=== PATIENT | female | born 1940 | race Two or more races ===

== ENCOUNTER → 2016-07-29 | Outpatient (CLI) | payer MEDICARE, MEDICAID ==
[~2016-07-29] MED LIST: ABAT125S SC; ALBU2SYP PO; ALBUAER3 IN; CERT200K SC; CHOL200021 PO; ESCI10TA53 PO; FLU05NSL; FLUT250M2 INH; FOLI1TAB51 PO; GABA-339 PO; HYDR-3546 PO; IBUP600T27 PO; LEUC5TAB PO; OMEP20CA5 PO; PAR20T PO; PRE1T PO; SUCR1TAB PO; ZOLP10TA PO
[2016-07-29 12:07] LABS: Basophils # (auto) 0 uL; Basophils % (auto) 0.3 % (0.0-2.0); Eosinophils # (auto) 0.2 uL; Eosinophils % (auto) 1.9 % (0.0-7.0); Hematocrit 45.5 % (36.0-46.0); Hemoglobin 14.2 g/dL (12.2-16.2); Lymphocytes # (auto) 1.9 uL; Mean Corpuscular Hemoglobin 29.3 pg (28.0-32.0); Mean Corpuscular Hgb Conc. 31.3 g/dL (32.0-36.0); Mean Corpuscular Volume 93.7 fL (80.0-100.0); Mean Platelet Volume 7.7 fL (7.4-10.4); Monocytes # (auto) 0.7 uL; Monocytes % (auto) 7.8 % (0.0-12.0); Neutrophils # (auto) 6.2 uL; Platelet Count (auto) 310 10^3/uL (140-450); Red Cell Distribution Width 14.6 % (11.6-16.0); White Blood Cell 8.9 10^3/uL (4.4-10.8)
[2016-07-29 12:30] LABS: Albumin 3.2 g/dL (3.4-5.0); Bilirubin, Total 0.4 mg/dL (0.2-1.0); Calcium 9.1 mg/dL (8.5-10.1); Potassium 4.3 mmol/L (3.5-5.1); Total Protein 6.9 g/dL (6.4-8.2)
== END | disposition home or self-care (01) ==
LOC: LAB 10:25
DX: Z79.899 Other long term (current) drug therapy (principal); I10 Essential (primary) hypertension; D64.9 Anemia, unspecified; E03.9 Hypothyroidism, unspecified; M06.9 Rheumatoid arthritis, unspecified; E21.5 Disorder of parathyroid gland, unspecified; M25.50 Pain in unspecified joint
CPT/HCPCS: 36415; 80053; 84443; 85025; 85652; 86141

== ENCOUNTER → 2016-08-07 | Outpatient (CLI) | payer MEDICARE, MEDICAID | END | disposition home or self-care (01) | LOC: XY 08:16 | DX: M25.551 Pain in right hip (principal); Z96.641 Presence of right artificial hip joint | CPT/HCPCS: 78306; A9503 ==

== ENCOUNTER → 2016-09-09 | Outpatient (CLI) | payer MEDICARE, MEDICAID ==
[~2016-09-09] MED LIST changes: +ALEN70TA55 PO; +DIC10C OR; +HYDR-531 PO; +TERI600S SUBCUT; +[UNRECOGNIZED DRUG - CODE] SC
[2016-09-09 17:03] LABS: INR 0.97 (0.9-1.15); Partial Thromboplastin Time 23.1 sec (22.64-33.71)
[2016-09-09 17:10] LABS: Basophils # (auto) 0 uL; Basophils % (auto) 0.3 % (0.0-2.0); Eosinophils # (auto) 0 uL; Eosinophils % (auto) 0.4 % (0.0-7.0); Hematocrit 45.3 % (36.0-46.0); Hemoglobin 15.6 g/dL (12.2-16.2); Mean Corpuscular Hemoglobin 31.6 pg (28.0-32.0); Mean Corpuscular Hgb Conc. 34.5 g/dL (32.0-36.0); Mean Corpuscular Volume 91.8 fL (80.0-100.0); Mean Platelet Volume 7.3 fL (7.4-10.4); Monocytes # (auto) 0.6 uL; Monocytes % (auto) 5.9 % (0.0-12.0); Neutrophils % (auto) 72.4 % (37.0-80.0); Platelet Count (auto) 283 10^3/uL (140-450); White Blood Cell 9.6 10^3/uL (4.4-10.8)
[2016-09-09 17:16] LABS: Albumin 3.4 g/dL (3.4-5.0); BUN/Creatinine Ratio 35.4; Calcium 8.8 mg/dL (8.5-10.1); Potassium 4.5 mmol/L (3.5-5.1)
[2016-09-09 17:19] LABS: Bilirubin, Total 0.3 mg/dL (0.2-1.0); Total Protein 7.5 g/dL (6.4-8.2)
== END | disposition home or self-care (01) ==
LOC: LAB 14:58
PROVIDERS: ATTEND Podiatrist Foot & Ankle Surgery
DX: Z01.818 Encounter for other preprocedural examination (principal); R79.1 Abnormal coagulation profile
CPT/HCPCS: 36415; 80053; 85025; 85610; 85730

== ENCOUNTER 2016-09-10 09:52 | Day surgery (SDC) | payer MEDICARE, MEDICAID ==
[~2016-09-10] VITALS: Ht 157.5 cm; Wt 48.1 kg
[~2016-09-10 09:52] MED LIST changes: -ALBU2SYP PO; -CERT200K SC; -ESCI10TA53 PO; -HYDR-3546 PO; -IBUP600T27 PO; -PAR20T PO; -SUCR1TAB PO; -ZOLP10TA PO
[2016-09-10] MEDS ORDERED: ceFAZolin 1GM/50ML D5W 50 ML IV ONE (10:12)
[2016-09-10] MEDS ORDERED: BUPIVACAINE 0.75% INJ 10ML MPV SDV IJ ONE (12:28)
[2016-09-10] MEDS ORDERED: NEOMYCIN-BACITRACIN-POLYM 15GM TOP OINT TOP ONE (12:28)
[2016-09-10] MEDS ORDERED: ceFAZolin 1GM VL ONE (12:28)
[2016-09-10] MEDS ORDERED: MIDAZOLAM HCL 1MG/1ML-2 ML VIAL ONE (12:31)
[2016-09-10] MEDS ORDERED: ONDANSETRON HCL 4 MG/2 ML VIAL ONE (12:31)
[2016-09-10] MEDS ORDERED: PROPOFOL 10 MG/ML 20 ML IV ONE (12:31)
[2016-09-10] MEDS ORDERED: fentaNYL CITRATE 100 MCG/2 ML VL ONE (12:31)
[2016-09-10] MEDS ORDERED: HYDROCORTISONE SOD SUCC 100 MG/2ML INJ VIAL ONE (12:57)
[2016-09-10] MEDS ORDERED: BUPIVACAINE W/ EPINEPH 0.25% INJ 50ML MDV ONE (13:01)
[2016-09-10] MEDS ORDERED: KETOROLAC TROMETH 30 MG/ML 1ML VIAL IV ONE (13:15)
[2016-09-10] MEDS ORDERED: PROMETHAZINE HCL 25 MG/ML 1ML IM ONE (13:15)
[2016-09-10] MEDS ORDERED: HYDROmorphone HCL 2 MG/ML VL IV PRN (13:15)
[2016-09-10 15:03] VITALS: BP 134/69
== END 2016-09-10 15:15 | disposition home or self-care (01) ==
LOC: SUR 09:52
PROVIDERS: ATTEND Podiatrist Foot & Ankle Surgery
DX: M24.574 Contracture, right foot (principal); J44.9 Chronic obstructive pulmonary disease, unspecified; F41.9 Anxiety disorder, unspecified; F32.9 Major depressive disorder, single episode, unspecified
CPT/HCPCS: 27685; J0690; J1170; J1720; J1885; J2250; J2405; J2704; J3010; J3490; Q4131

== ENCOUNTER 2016-11-17 07:42 | Inpatient (IN) | payer MEDICARE, MEDICAID ==
[~2016-11-17] VITALS: Ht 152.4 cm; Wt 49.4 kg
[~2016-11-17 07:42] MED LIST changes: -ABAT125S SC; +ABAT1INJ SC; -ALBUAER3 IN; -CHOL200021 PO; -DIC10C OR; +DICY20TA66 PO; -FLU05NSL; +FLUO-126 PO; +FLUT1SPR5; -FLUT250M2 INH; -LEUC5TAB PO; +LORA2TAB89 PO; +SUCR1TAB38 OR; -[UNRECOGNIZED DRUG - CODE] SC
[2016-11-17 09:07] LABS: Basophils # (auto) 0 uL; Basophils % (auto) 0.5 % (0.0-2.0); Eosinophils # (auto) 0 uL; Eosinophils % (auto) 0.7 % (0.0-7.0); Hematocrit 45.3 % (36.0-46.0); Hemoglobin 15.3 g/dL (12.2-16.2); Lymphocytes # (auto) 2.4 uL; Lymphocytes % (auto) 35.6 % (10.0-50.0); Mean Corpuscular Hemoglobin 31.9 pg (28.0-32.0); Mean Corpuscular Hgb Conc. 33.8 g/dL (32.0-36.0); Mean Corpuscular Volume 94.3 fL (80.0-100.0); Mean Platelet Volume 6.9 fL (7.4-10.4); Monocytes # (auto) 0.6 uL; Monocytes % (auto) 8.9 % (0.0-12.0); Neutrophils # (auto) 3.7 uL; Neutrophils % (auto) 54.3 % (37.0-80.0); Platelet Count (auto) 266 10^3/uL (140-450); Red Cell Distribution Width 15.9 % (11.6-16.0); White Blood Cell 6.9 10^3/uL (4.4-10.8)
[2016-11-17 09:13] LABS: Albumin 3.7 g/dL (3.4-5.0); Alkaline Phosphatase 64 U/L (45-117); Anion Gap 10 (5-15); Aspartate Aminotransferase 19 U/L (15-37); Bilirubin, Total 0.7 mg/dL (0.2-1.0); Blood Urea Nitrogen 6 mg/dL (7-18); Calcium 9.1 mg/dL (8.5-10.1); Carbon Dioxide 25 mmol/L (21-32); Chloride 104 mmol/L (98-107); GFR African American 201 mL/min; GFR Non-African American 166 mL/min; Glucose 82 mg/dL (74-106); Magnesium 2.4 mg/dL (1.6-2.6); Potassium 3.9 mmol/L (3.5-5.1); Sodium 139 mmol/L (136-145); Total Protein 7.1 g/dL (6.4-8.2)
[2016-11-17] MEDS ORDERED: SODIUM CHLORIDE 0.9% 1,000 ML IV ONE (10:00)
[2016-11-17] MEDS ORDERED: MORPHINE SULF INJ 2 MG/ML SYRINGE 1ML IV ONE (10:00)
[2016-11-17] MEDS ORDERED: ONDANSETRON HCL 4 MG/2 ML VIAL IV ONE ×2 (10:00→12:15)
[2016-11-17] MEDS ORDERED: PANTOPRAZOLE SODIUM 40 MG/10 ML VIAL IV ONE (11:00)
[2016-11-17 11:06] LABS: Urine Bilirubin Negative (Negative); Urine Blood Negative /uL (Negative); Urine Color Yellow (Yellow); Urine Glucose Normal (Normal); Urine Nitrite Negative (Negative); Urine RBC 1 /hpf (0 - 4); Urine Squamous Epithelial Cell FEW /hpf (<5); Urine Urobilinogen Normal (Negative); Urine pH 8.5 (5.0-8.0)
[2016-11-17 11:07] LABS: Urine Ketone 2+ (Negative)
[2016-11-17] MEDS ORDERED: HYDROmorphone HCL 2 MG/ML VL IV ONE (12:15)
[2016-11-17] MEDS: SODIUM CHLORIDE 0.9% 1,000 ML IV SCH (15:58)
[2016-11-17] MEDS ORDERED: ALENDRONATE SODIUM 10 MG TAB PO SCH (16:00)
[2016-11-17] MEDS ORDERED: ACETAMINOPHEN 325 MG TAB PO PRN (16:00)
[2016-11-17] MEDS ORDERED: DOCUSATE SOD 100 MG CAP PO PRN (16:00)
[2016-11-17] MEDS ORDERED: cefTRIAXone 1GM/50ML D5W 50 ML IV ONE (16:00)
[2016-11-17] MEDS: SUCRALFATE 1 GM/10 ML ORAL SUSP PO SCH ×2 (16:49→22:40)
[2016-11-17] MEDS: MORPHINE SULF INJ 2 MG/ML SYRINGE 1ML IV PRN (18:14)
[2016-11-17] MEDS: ONDANSETRON HCL 4 MG/2 ML VIAL IV PRN (18:14)
[2016-11-17] MEDS: metroNIDAZOLE 500MG/100ML 100 ML IV SCH (18:20)
[2016-11-17] MEDS: DICYCLOMINE HCL 10 MG CAP PO SCH ×2 (18:20→22:40)
[2016-11-17 20:00] VITALS: BP 103/47
[2016-11-17 22:00] VITALS: BP 103/47
[2016-11-17] MEDS ORDERED: FAMOTIDINE (10MG/ML) 2ML VL IV SCH (22:00)
[2016-11-17] MEDS: FLUTICASONE PROP NASAL SPR 0.05 % (50MCG) 16GM EACHNOSTRI SCH (22:00)
[2016-11-17] MEDS: PANTOPRAZOLE SODIUM 40 MG/10 ML VIAL IV SCH (22:39)
[2016-11-17] MEDS: GABAPENTIN 300 MG CAP PO SCH (22:40)
[2016-11-17] MEDS: HYDROcodone-ACET 10/325MG TAB PO PRN (22:41)
[2016-11-18] VITALS (7 sets, daily range): BP systolic 110–127; BP diastolic 44–61
[2016-11-18] MEDS: metroNIDAZOLE 500MG/100ML 100 ML IV SCH ×3 (01:42→11:43)
[2016-11-18] MEDS: SODIUM CHLORIDE 0.9% 1,000 ML IV SCH ×3 (01:43→16:43)
[2016-11-18] MEDS: TEMAZEPAM 15 MG CAP PO PRN ×2 (02:15→23:23)
[2016-11-18] MEDS: DICYCLOMINE HCL 10 MG CAP PO SCH ×4 (06:38→21:34)
[2016-11-18] MEDS: SUCRALFATE 1 GM/10 ML ORAL SUSP PO SCH ×4 (06:38→21:33)
[2016-11-18 06:55] LABS: Basophils # (auto) 0 uL; Basophils % (auto) 0.7 % (0.0-2.0); Eosinophils # (auto) 0.1 uL; Eosinophils % (auto) 1.8 % (0.0-7.0); Hematocrit 37.4 % (36.0-46.0); Hemoglobin 12.7 g/dL (12.2-16.2); Lymphocytes # (auto) 1.8 uL; Lymphocytes % (auto) 35.5 % (10.0-50.0); Mean Corpuscular Hemoglobin 32.2 pg (28.0-32.0); Mean Corpuscular Volume 94.6 fL (80.0-100.0); Mean Platelet Volume 6.8 fL (7.4-10.4); Monocytes # (auto) 0.5 uL; Monocytes % (auto) 10.3 % (0.0-12.0); Neutrophils # (auto) 2.6 uL; Neutrophils % (auto) 51.7 % (37.0-80.0); Platelet Count (auto) 222 10^3/uL (140-450); Red Cell Distribution Width 15.1 % (11.6-16.0); White Blood Cell 5.1 10^3/uL (4.4-10.8)
[2016-11-18 07:03] LABS: Albumin 2.7 g/dL (3.4-5.0); BUN/Creatinine Ratio 17.9; Bilirubin, Total 0.5 mg/dL (0.2-1.0); Calcium 7.7 mg/dL (8.5-10.1); Potassium 3.7 mmol/L (3.5-5.1); Total Protein 5.5 g/dL (6.4-8.2)
[2016-11-18] MEDS ORDERED: cefTRIAXone 1GM/50ML D5W 50 ML IV SCH (09:00)
[2016-11-18] MEDS: FLUTICASONE PROP NASAL SPR 0.05 % (50MCG) 16GM EACHNOSTRI SCH ×2 (09:56→22:00)
[2016-11-18] MEDS: MULTIPLE VITAMIN TAB PO SCH (09:56)
[2016-11-18] MEDS: PANTOPRAZOLE SODIUM 40 MG/10 ML VIAL IV SCH ×2 (09:56→21:33)
[2016-11-18] MEDS: MORPHINE SULF INJ 2 MG/ML SYRINGE 1ML IV PRN ×2 (09:56→17:32)
[2016-11-18] MEDS: GABAPENTIN 300 MG CAP PO SCH ×2 (09:57→21:34)
[2016-11-18] MEDS: predniSONE 1 MG TAB PO SCH (09:57)
[2016-11-18] MEDS: FOLIC ACID 1 MG TAB PO SCH (09:57)
[2016-11-18] MEDS: FLUoxetine HCL 10 MG CAP PO SCH (09:57)
[2016-11-18] MEDS: ONDANSETRON HCL 4 MG/2 ML VIAL IV PRN ×2 (12:28→17:32)
[2016-11-18] MEDS: HYDROcodone-ACET 10/325MG TAB PO PRN ×2 (12:28→21:40)
[2016-11-19] MEDS: SODIUM CHLORIDE 0.9% 1,000 ML IV SCH ×3 (03:06→17:35)
[2016-11-19] MEDS: HYDROcodone-ACET 10/325MG TAB PO PRN (05:12)
[2016-11-19] MEDS: SUCRALFATE 1 GM/10 ML ORAL SUSP PO SCH ×4 (05:12→22:18)
[2016-11-19] MEDS: DICYCLOMINE HCL 10 MG CAP PO SCH ×2 (05:12→11:41)
[2016-11-19 05:30] VITALS: BP 129/60
[2016-11-19 09:00] VITALS: BP 133/72
[2016-11-19] MEDS: FOLIC ACID 1 MG TAB PO SCH (09:47)
[2016-11-19] MEDS: FLUoxetine HCL 10 MG CAP PO SCH (09:47)
[2016-11-19] MEDS: MULTIPLE VITAMIN TAB PO SCH (09:47)
[2016-11-19] MEDS: PANTOPRAZOLE SODIUM 40 MG/10 ML VIAL IV SCH (09:47)
[2016-11-19] MEDS: predniSONE 1 MG TAB PO SCH (09:47)
[2016-11-19] MEDS: MORPHINE SULF INJ 2 MG/ML SYRINGE 1ML IV PRN ×4 (09:47→22:18)
[2016-11-19] MEDS: GABAPENTIN 300 MG CAP PO SCH ×2 (09:47→22:18)
[2016-11-19] MEDS: ONDANSETRON HCL 4 MG/2 ML VIAL IV PRN ×4 (09:56→22:18)
[2016-11-19] MEDS: FLUTICASONE PROP NASAL SPR 0.05 % (50MCG) 16GM EACHNOSTRI SCH ×2 (10:00→22:46)
[2016-11-19 13:00] VITALS: BP 111/53
[2016-11-19 16:34] VITALS: BP 123/60
[2016-11-19 20:00] VITALS: BP 109/59
[2016-11-19 22:00] VITALS: BP 109/59
[2016-11-19] MEDS: PANTOPRAZOLE 40 MG TAB PO SCH (22:19)
[2016-11-20] MEDS: SODIUM CHLORIDE 0.9% 1,000 ML IV SCH ×3 (02:49→19:48)
[2016-11-20] MEDS: MORPHINE SULF INJ 2 MG/ML SYRINGE 1ML IV PRN ×5 (03:20→21:24)
[2016-11-20] MEDS: ONDANSETRON HCL 4 MG/2 ML VIAL IV PRN ×5 (03:20→21:24)
[2016-11-20 05:30] VITALS: BP 115/57
[2016-11-20] MEDS: SUCRALFATE 1 GM/10 ML ORAL SUSP PO SCH ×4 (06:33→21:57)
[2016-11-20 08:00] VITALS: BP 119/74
[2016-11-20 09:00] VITALS: BP_SYST 112; BP_SYST 119; BP_DIAS 59; BP_DIAS 74
[2016-11-20] MEDS: FLUTICASONE PROP NASAL SPR 0.05 % (50MCG) 16GM EACHNOSTRI SCH ×2 (09:23→21:58)
[2016-11-20] MEDS: PANTOPRAZOLE 40 MG TAB PO SCH ×2 (09:24→21:31)
[2016-11-20] MEDS: predniSONE 1 MG TAB PO SCH (09:24)
[2016-11-20] MEDS: GABAPENTIN 300 MG CAP PO SCH (09:24)
[2016-11-20] MEDS: MULTIPLE VITAMIN TAB PO SCH (09:24)
[2016-11-20] MEDS: FLUoxetine HCL 10 MG CAP PO SCH (09:24)
[2016-11-20] MEDS: FOLIC ACID 1 MG TAB PO SCH (09:24)
[2016-11-20] MEDS: BOOST PLUS 8 ounce PO SCH ×2 (10:00→22:00)
[2016-11-20 13:00] VITALS: BP 112/64
[2016-11-20] MEDS: HYOSCYAMINE SULF 0.125 MG TAB PO PRN (16:11)
[2016-11-20 17:00] VITALS: BP 124/67
[2016-11-20] MEDS: PREGABALIN 25 MG CAP PO SCH (21:31)
[2016-11-20 22:00] VITALS: BP 132/82
[2016-11-21] MEDS: SODIUM CHLORIDE 0.9% 1,000 ML IV SCH ×3 (03:18→20:07)
[2016-11-21 05:00] VITALS: BP 140/78
[2016-11-21] MEDS: MORPHINE SULF INJ 2 MG/ML SYRINGE 1ML IV PRN ×4 (05:57→20:44)
[2016-11-21] MEDS: ONDANSETRON HCL 4 MG/2 ML VIAL IV PRN ×4 (05:57→20:44)
[2016-11-21] MEDS: SUCRALFATE 1 GM/10 ML ORAL SUSP PO SCH ×4 (06:25→21:41)
[2016-11-21 08:00] VITALS: BP 154/78
[2016-11-21] MEDS: HYDROcodone-ACET 10/325MG TAB PO PRN ×2 (08:38)
[2016-11-21 09:00] VITALS: BP 154/78
[2016-11-21] MEDS: PANTOPRAZOLE 40 MG TAB PO SCH ×2 (11:24→21:41)
[2016-11-21] MEDS: FLUoxetine HCL 10 MG CAP PO SCH (11:24)
[2016-11-21] MEDS: predniSONE 1 MG TAB PO SCH (11:24)
[2016-11-21] MEDS: MULTIPLE VITAMIN TAB PO SCH (11:24)
[2016-11-21] MEDS: FOLIC ACID 1 MG TAB PO SCH (11:25)
[2016-11-21] MEDS: FLUTICASONE PROP NASAL SPR 0.05 % (50MCG) 16GM EACHNOSTRI SCH ×2 (11:26→21:41)
[2016-11-21] MEDS: BOOST PLUS 8 ounce PO SCH ×2 (11:26→21:41)
[2016-11-21 13:00] VITALS: BP 142/72
[2016-11-21 17:00] VITALS: BP 117/64
[2016-11-21] MEDS: TEMAZEPAM 15 MG CAP PO PRN (21:41)
[2016-11-21] MEDS: PREGABALIN 25 MG CAP PO SCH (21:41)
[2016-11-21] MEDS: metroNIDAZOLE 500 MG TAB PO SCH (21:41)
[2016-11-21 22:00] VITALS: BP 142/78
[2016-11-22] VITALS (7 sets, daily range): BP systolic 122–150; BP diastolic 68–83
[2016-11-22] MEDS: ONDANSETRON HCL 4 MG/2 ML VIAL IV PRN ×5 (04:02→22:45)
[2016-11-22] MEDS: MORPHINE SULF INJ 2 MG/ML SYRINGE 1ML IV PRN ×5 (04:02→22:45)
[2016-11-22] MEDS: SODIUM CHLORIDE 0.9% 1,000 ML IV SCH ×3 (04:02→21:03)
[2016-11-22] MEDS: metroNIDAZOLE 500 MG TAB PO SCH ×3 (06:25→21:40)
[2016-11-22] MEDS: SUCRALFATE 1 GM/10 ML ORAL SUSP PO SCH ×4 (06:25→21:40)
[2016-11-22 06:44] LABS: Basophils # (auto) 0 uL; Basophils % (auto) 0.6 % (0.0-2.0); Eosinophils # (auto) 0 uL; Eosinophils % (auto) 0.9 % (0.0-7.0); Hematocrit 37.3 % (36.0-46.0); Hemoglobin 12.7 g/dL (12.2-16.2); Lymphocytes # (auto) 1.6 uL; Lymphocytes % (auto) 34.7 % (10.0-50.0); Mean Corpuscular Hemoglobin 32.2 pg (28.0-32.0); Mean Corpuscular Volume 94.8 fL (80.0-100.0); Mean Platelet Volume 7.2 fL (7.4-10.4); Monocytes # (auto) 0.6 uL; Neutrophils # (auto) 2.4 uL; Neutrophils % (auto) 51.8 % (37.0-80.0); Platelet Count (auto) 219 10^3/uL (140-450); Red Cell Distribution Width 15.4 % (11.6-16.0); White Blood Cell 4.6 10^3/uL (4.4-10.8)
[2016-11-22] MEDS: FLUTICASONE PROP NASAL SPR 0.05 % (50MCG) 16GM EACHNOSTRI SCH ×2 (10:00→21:40)
[2016-11-22] MEDS: FOLIC ACID 1 MG TAB PO SCH (10:44)
[2016-11-22] MEDS: FLUoxetine HCL 10 MG CAP PO SCH (10:44)
[2016-11-22] MEDS: PANTOPRAZOLE 40 MG TAB PO SCH ×2 (10:44→21:40)
[2016-11-22] MEDS: MULTIPLE VITAMIN TAB PO SCH (10:44)
[2016-11-22] MEDS: predniSONE 1 MG TAB PO SCH (10:44)
[2016-11-22] MEDS: BOOST PLUS 8 ounce PO SCH ×2 (10:49→21:40)
[2016-11-22] MEDS: HYDROcodone-ACET 10/325MG TAB PO PRN (12:41)
[2016-11-22] MEDS: PREGABALIN 25 MG CAP PO SCH (21:40)
[2016-11-23] VITALS (7 sets, daily range): BP systolic 116–147; BP diastolic 68–80
[2016-11-23] MEDS: MORPHINE SULF INJ 2 MG/ML SYRINGE 1ML IV PRN ×2 (05:15→09:50)
[2016-11-23] MEDS: ONDANSETRON HCL 4 MG/2 ML VIAL IV PRN ×5 (05:15→23:05)
[2016-11-23] MEDS: metroNIDAZOLE 500 MG TAB PO SCH ×3 (05:15→21:27)
[2016-11-23] MEDS: SODIUM CHLORIDE 0.9% 1,000 ML IV SCH ×2 (05:46→14:06)
[2016-11-23] MEDS: SUCRALFATE 1 GM/10 ML ORAL SUSP PO SCH ×4 (06:21→21:26)
[2016-11-23] MEDS: FOLIC ACID 1 MG TAB PO SCH (09:51)
[2016-11-23] MEDS: FLUoxetine HCL 10 MG CAP PO SCH (09:51)
[2016-11-23] MEDS: PANTOPRAZOLE 40 MG TAB PO SCH ×2 (09:51→21:28)
[2016-11-23] MEDS: predniSONE 1 MG TAB PO SCH (09:51)
[2016-11-23] MEDS: MULTIPLE VITAMIN TAB PO SCH (09:51)
[2016-11-23] MEDS: FLUTICASONE PROP NASAL SPR 0.05 % (50MCG) 16GM EACHNOSTRI SCH ×2 (09:52→21:26)
[2016-11-23] MEDS: BOOST PLUS 8 ounce PO SCH ×2 (09:52→21:27)
[2016-11-23] MEDS: PHENAZOPYRIDINE HCL 100 MG TAB PO SCH ×2 (11:49→17:51)
[2016-11-23 11:50] LABS: Urine Bilirubin Negative (Negative); Urine Blood Negative /uL (Negative); Urine Color Yellow (Yellow); Urine Glucose Normal (Normal); Urine Ketone Negative (Negative); Urine Mucus FEW (None Seen); Urine Nitrite Negative (Negative); Urine RBC <1 /hpf (0 - 4); Urine Squamous Epithelial Cell FEW /hpf (<5); Urine Urobilinogen Normal (Negative)
[2016-11-23] MEDS: MORPHINE SULFATE 4 MG/ML SYRG IV PRN ×3 (14:11→23:05)
[2016-11-23] MEDS: PREGABALIN 25 MG CAP PO SCH (21:27)
[2016-11-23] MEDS: NITROFURANTOIN (MONO) 100 mg CAP PO SCH (21:28)
[2016-11-24] MEDS: SODIUM CHLORIDE 0.9% 1,000 ML IV SCH ×4 (00:17→15:45)
[2016-11-24] MEDS: ONDANSETRON HCL 4 MG/2 ML VIAL IV PRN ×5 (03:22→20:42)
[2016-11-24] MEDS: MORPHINE SULFATE 4 MG/ML SYRG IV PRN ×5 (03:22→20:42)
[2016-11-24 05:00] VITALS: BP 134/79
[2016-11-24] MEDS: metroNIDAZOLE 500 MG TAB PO SCH ×3 (05:46→21:51)
[2016-11-24 06:08] LABS: Basophils # (auto) 0 uL; Basophils % (auto) 0.7 % (0.0-2.0); Eosinophils # (auto) 0.1 uL; Eosinophils % (auto) 1.1 % (0.0-7.0); Hematocrit 36.8 % (36.0-46.0); Hemoglobin 12.6 g/dL (12.2-16.2); Lymphocytes # (auto) 1.7 uL; Lymphocytes % (auto) 32.3 % (10.0-50.0); Mean Corpuscular Hemoglobin 32.4 pg (28.0-32.0); Mean Corpuscular Hgb Conc. 34.2 g/dL (32.0-36.0); Mean Corpuscular Volume 94.7 fL (80.0-100.0); Mean Platelet Volume 7.1 fL (7.4-10.4); Monocytes # (auto) 0.6 uL; Monocytes % (auto) 12.1 % (0.0-12.0); Neutrophils # (auto) 2.8 uL; Neutrophils % (auto) 53.8 % (37.0-80.0); Platelet Count (auto) 224 10^3/uL (140-450); Red Cell Distribution Width 15.7 % (11.6-16.0); White Blood Cell 5.2 10^3/uL (4.4-10.8)
[2016-11-24 06:30] LABS: Albumin 2.9 g/dL (3.4-5.0); BUN/Creatinine Ratio 11.8; Bilirubin, Total 0.5 mg/dL (0.2-1.0); Calcium 7.9 mg/dL (8.5-10.1); Potassium 3.1 mmol/L (3.5-5.1); Total Protein 5.6 g/dL (6.4-8.2)
[2016-11-24] MEDS: SUCRALFATE 1 GM/10 ML ORAL SUSP PO SCH ×4 (06:30→21:51)
[2016-11-24 07:28] VITALS: BP 142/83
[2016-11-24] MEDS: PHENAZOPYRIDINE HCL 100 MG TAB PO SCH ×2 (08:12→11:32)
[2016-11-24] MEDS: predniSONE 1 MG TAB PO SCH (09:15)
[2016-11-24] MEDS: NITROFURANTOIN (MONO) 100 mg CAP PO SCH (09:15)
[2016-11-24] MEDS: FOLIC ACID 1 MG TAB PO SCH (09:15)
[2016-11-24] MEDS: FLUoxetine HCL 10 MG CAP PO SCH (09:15)
[2016-11-24] MEDS: PANTOPRAZOLE 40 MG TAB PO SCH ×2 (09:15→21:51)
[2016-11-24] MEDS: MULTIPLE VITAMIN TAB PO SCH (09:15)
[2016-11-24] MEDS: BOOST PLUS 8 ounce PO SCH ×2 (10:03→21:51)
[2016-11-24] MEDS: FLUTICASONE PROP NASAL SPR 0.05 % (50MCG) 16GM EACHNOSTRI SCH ×2 (10:18→21:51)
[2016-11-24 12:41] VITALS: BP 115/79
[2016-11-24] MEDS ORDERED: HYDROcodone-ACET 10/325MG TAB PO PRN (15:00)
[2016-11-24] MEDS ORDERED: TEMAZEPAM 15 MG CAP PO PRN (15:00)
[2016-11-24] MEDS ORDERED: POTASSIUM CHLORIDE 40 MEQ, LIDOCAINE 1% (LOCAL ANESTH.) 4 ML in SODIUM CHL 0.9% 250 ML IV ONE (15:45)
[2016-11-24 17:08] VITALS: BP 151/71
[2016-11-24] MEDS: FLORASTOR (S. BOULARDII) 250 MG CAP PO SCH (21:51)
[2016-11-24] MEDS: PREGABALIN 25 MG CAP PO SCH (21:51)
[2016-11-24 22:56] VITALS: BP 158/86
[2016-11-25] MEDS: MORPHINE SULFATE 4 MG/ML SYRG IV PRN ×6 (01:03→21:12)
[2016-11-25] MEDS: ONDANSETRON HCL 4 MG/2 ML VIAL IV PRN ×6 (01:04→21:13)
[2016-11-25 05:12] VITALS: BP 129/75
[2016-11-25] MEDS: metroNIDAZOLE 500 MG TAB PO SCH ×3 (05:43→22:01)
[2016-11-25] MEDS: SODIUM CHLORIDE 0.9% 1,000 ML IV SCH (05:43)
[2016-11-25] MEDS: SUCRALFATE 1 GM/10 ML ORAL SUSP PO SCH ×4 (06:33→22:02)
[2016-11-25 06:58] LABS: Basophils # (auto) 0 uL; Basophils % (auto) 0.5 % (0.0-2.0); Eosinophils # (auto) 0.1 uL; Eosinophils % (auto) 1.2 % (0.0-7.0); Hematocrit 38.7 % (36.0-46.0); Lymphocytes % (auto) 34.2 % (10.0-50.0); Mean Corpuscular Hemoglobin 32.1 pg (28.0-32.0); Mean Corpuscular Hgb Conc. 33.6 g/dL (32.0-36.0); Mean Corpuscular Volume 95.4 fL (80.0-100.0); Mean Platelet Volume 7.3 fL (7.4-10.4); Monocytes # (auto) 0.7 uL; Monocytes % (auto) 11.5 % (0.0-12.0); Neutrophils # (auto) 3.1 uL; Neutrophils % (auto) 52.6 % (37.0-80.0); Platelet Count (auto) 231 10^3/uL (140-450); Red Cell Distribution Width 15.5 % (11.6-16.0); White Blood Cell 5.8 10^3/uL (4.4-10.8)
[2016-11-25 07:26] LABS: Calcium 8.3 mg/dL (8.5-10.1); Potassium 3.3 mmol/L (3.5-5.1)
[2016-11-25 09:00] VITALS: BP 124/62
[2016-11-25] MEDS: FOLIC ACID 1 MG TAB PO SCH (09:22)
[2016-11-25] MEDS: FLORASTOR (S. BOULARDII) 250 MG CAP PO SCH ×2 (09:22→22:01)
[2016-11-25] MEDS: PANTOPRAZOLE 40 MG TAB PO SCH ×2 (09:22→22:02)
[2016-11-25] MEDS: FLUTICASONE PROP NASAL SPR 0.05 % (50MCG) 16GM EACHNOSTRI SCH ×2 (09:22→22:54)
[2016-11-25] MEDS: predniSONE 1 MG TAB PO SCH (09:22)
[2016-11-25] MEDS: MULTIPLE VITAMIN TAB PO SCH (09:22)
[2016-11-25] MEDS: FLUoxetine HCL 10 MG CAP PO SCH (10:00)
[2016-11-25] MEDS: BOOST PLUS 8 ounce PO SCH ×2 (10:00→22:02)
[2016-11-25 13:00] VITALS: BP 127/77
[2016-11-25] MEDS: POTASSIUM CHL 20 Meq TABLET PO SCH ×2 (16:33→22:01)
[2016-11-25 17:00] VITALS: BP 120/75
[2016-11-25 18:47] LABS: Potassium 3.4 mmol/L (3.5-5.1)
[2016-11-25 20:00] VITALS: BP 106/69
[2016-11-25] MEDS: PREGABALIN 25 MG CAP PO SCH (22:00)
[2016-11-26] MEDS: MORPHINE SULFATE 4 MG/ML SYRG IV PRN ×4 (02:00→14:49)
[2016-11-26] MEDS: ONDANSETRON HCL 4 MG/2 ML VIAL IV PRN ×4 (02:00→14:49)
[2016-11-26] MEDS: metroNIDAZOLE 500 MG TAB PO SCH ×2 (05:33→13:27)
[2016-11-26] MEDS: SUCRALFATE 1 GM/10 ML ORAL SUSP PO SCH ×2 (05:33→11:24)
[2016-11-26] MEDS: FLUTICASONE PROP NASAL SPR 0.05 % (50MCG) 16GM EACHNOSTRI SCH (05:33)
[2016-11-26 08:00] VITALS: BP 139/73
[2016-11-26 08:47] VITALS: BP 139/73
[2016-11-26] MEDS: FOLIC ACID 1 MG TAB PO SCH (09:55)
[2016-11-26] MEDS: FLORASTOR (S. BOULARDII) 250 MG CAP PO SCH (09:56)
[2016-11-26] MEDS: BOOST PLUS 8 ounce PO SCH (09:56)
[2016-11-26] MEDS: PANTOPRAZOLE 40 MG TAB PO SCH (09:57)
[2016-11-26] MEDS: MULTIPLE VITAMIN TAB PO SCH (09:57)
[2016-11-26] MEDS: POTASSIUM CHL 20 Meq TABLET PO SCH (09:57)
[2016-11-26] MEDS: FLUoxetine HCL 10 MG CAP PO SCH (09:57)
[2016-11-26] MEDS: predniSONE 1 MG TAB PO SCH (10:16)
[2016-11-26 13:10] VITALS: BP 105/61
[2016-11-26] MEDS: HYOSCYAMINE SULF 0.125 MG TAB PO PRN (13:36)
[2016-11-26 15:17] VITALS: BP 105/61
== END 2016-11-26 16:00 | disposition home health service (06) | DRG 372 ==
LOC: EDBD 07:42 → ER 07:45 → TELE 07:46 → WEST WING 19:42
PROVIDERS: ADMIT Internal Medicine; ATTEND Internal Medicine Pulmonary Disease
DX: A04.7 Enterocolitis due to Clostridium difficile (principal); M48.56XA Collapsed vertebra, not elsewhere classified, lumbar region, initial encounter for fracture; M06.9 Rheumatoid arthritis, unspecified; J45.909 Unspecified asthma, uncomplicated; K21.9 Gastro-esophageal reflux disease without esophagitis; K29.50 Unspecified chronic gastritis without bleeding; F32.9 Major depressive disorder, single episode, unspecified; J44.9 Chronic obstructive pulmonary disease, unspecified; G89.29 Other chronic pain; K27.9 Peptic ulcer, site unspecified, unspecified as acute or chronic, without hemorrhage or perforation; K44.9 Diaphragmatic hernia without obstruction or gangrene; M48.06 Spinal stenosis, lumbar region; M19.90 Unspecified osteoarthritis, unspecified site; M81.0 Age-related osteoporosis without current pathological fracture; M21.949 Unspecified acquired deformity of hand, unspecified hand; M54.16 Radiculopathy, lumbar region; Z79.899 Other long term (current) drug therapy; Z90.49 Acquired absence of other specified parts of digestive tract; Z71.3 Dietary counseling and surveillance
CPT/HCPCS: 36415; 72070; 74020; 74176; 80048; 80051; 80053; 81001; 82378; 83690; 83735; 84443; 84484; 85025; 86301; 87045; 87081; 87086; 87493; 87899; 93005; 96365; 96375; 96376; C9113; J0696; J2001; J2405; J3490

== ENCOUNTER → 2016-12-23 | Outpatient (CLI) | payer MEDICARE, MEDICAID ==
[~2016-12-23] MED LIST changes: -OMEP20CA5 PO; +OMEP20CA74 PO
[2016-12-23 10:38] LABS: Basophils # (auto) 0 uL; Basophils % (auto) 0.4 % (0.0-2.0); CONDITION Y; Eosinophils # (auto) 0 uL; Eosinophils % (auto) 0.4 % (0.0-7.0); Hematocrit 43.6 % (36.0-46.0); Hemoglobin 14.7 g/dL (12.2-16.2); Lymphocytes # (auto) 1.8 uL; Lymphocytes % (auto) 21.4 % (10.0-50.0); Mean Corpuscular Hemoglobin 32.2 pg (28.0-32.0); Mean Corpuscular Hgb Conc. 33.6 g/dL (32.0-36.0); Mean Corpuscular Volume 95.9 fL (80.0-100.0); Mean Platelet Volume 6.5 fL (7.4-10.4); Monocytes # (auto) 0.9 uL; Monocytes % (auto) 10.9 % (0.0-12.0); Neutrophils # (auto) 5.8 uL; Neutrophils % (auto) 66.9 % (37.0-80.0); Platelet Count (auto) 349 10^3/uL (140-450); Red Cell Distribution Width 14.5 % (11.6-16.0); White Blood Cell 8.6 10^3/uL (4.4-10.8)
[2016-12-23 11:00] LABS: Albumin 3.4 g/dL (3.4-5.0); BUN/Creatinine Ratio 20.8; Bilirubin, Total 0.4 mg/dL (0.2-1.0); Potassium 4.8 mmol/L (3.5-5.1); Total Protein 7.2 g/dL (6.4-8.2)
== END | disposition home or self-care (01) ==
LOC: LAB 10:09
DX: I10 Essential (primary) hypertension (principal); M06.9 Rheumatoid arthritis, unspecified; M25.50 Pain in unspecified joint; D64.9 Anemia, unspecified; Z79.899 Other long term (current) drug therapy
CPT/HCPCS: 36415; 80053; 85025; 85652; 86141

== ENCOUNTER 2017-01-14 11:05 | Day surgery (SDC) | payer MEDICARE, MEDICAID ==
[2017-01-13 16:31] LABS: Basophils # (auto) 0 uL; Basophils % (auto) 0.5 % (0.0-2.0); CONDITION Y; Eosinophils # (auto) 0 uL; Eosinophils % (auto) 0.4 % (0.0-7.0); Hematocrit 42.8 % (36.0-46.0); Hemoglobin 14.6 g/dL (12.2-16.2); Lymphocytes # (auto) 2.5 uL; Lymphocytes % (auto) 27.8 % (10.0-50.0); Mean Corpuscular Hemoglobin 32.5 pg (28.0-32.0); Mean Corpuscular Hgb Conc. 34.1 g/dL (32.0-36.0); Mean Corpuscular Volume 95.4 fL (80.0-100.0); Mean Platelet Volume 6.7 fL (7.4-10.4); Monocytes # (auto) 0.7 uL; Monocytes % (auto) 7.5 % (0.0-12.0); Neutrophils # (auto) 5.7 uL; Neutrophils % (auto) 63.8 % (37.0-80.0); Platelet Count (auto) 334 10^3/uL (140-450); Red Cell Distribution Width 14.3 % (11.6-16.0)
[2017-01-13 16:57] LABS: Albumin 3.5 g/dL (3.4-5.0); BUN/Creatinine Ratio 28.8; Bilirubin, Total 0.5 mg/dL (0.2-1.0); Calcium 8.9 mg/dL (8.5-10.1); INR 0.93 (0.9-1.15); Partial Thromboplastin Time 23.1 sec (22.64-33.71); Potassium 4.6 mmol/L (3.5-5.1); Prothrombin Time 10.1 sec (9.37-12.3); Total Protein 7.4 g/dL (6.4-8.2)
[~2017-01-14] VITALS: Ht 154.9 cm; Wt 48.1 kg
[2017-01-14] MEDS ORDERED: NEOMYCIN-BACITRACIN-POLYM 15GM TOP OINT TOP ONE (15:40)
[2017-01-14] MEDS ORDERED: BUPIVACAINE 0.25% INJ 50ML VIAL ONE (15:41)
[2017-01-14] MEDS ORDERED: ROPIVACAINE 0.5% (5MG/ML) 20ML AMPULE IJ ONE (15:41)
[2017-01-14] MEDS ORDERED: fentaNYL CITRATE 100 MCG/2 ML VL ONE (16:45)
[2017-01-14] MEDS ORDERED: PROPOFOL 10 MG/ML 20 ML IV ONE (16:45)
[2017-01-14] MEDS ORDERED: MIDAZOLAM HCL 1MG/1ML-2 ML VIAL ONE (16:45)
[2017-01-14] MEDS ORDERED: BUPIVACAINE 0.75% INJ 10ML MPV SDV IJ ONE (16:58)
[2017-01-14] MEDS ORDERED: HYDROmorphone HCL 2 MG/ML VL ONE (17:27)
[2017-01-14] MEDS ORDERED: ONDANSETRON HCL 4 MG/2 ML VIAL IV ONE (17:30)
[2017-01-14] MEDS ORDERED: ePHEDrine SULFATE 50 MG/ML AMP IV PRN (17:30)
[2017-01-14] MEDS ORDERED: hydrALAZINE HCL 20 MG/ML VL IV PRN (17:30)
[2017-01-14] MEDS ORDERED: HYDROmorphone HCL 2 MG/ML VL IV PRN (17:30)
[2017-01-14 17:47] VITALS: BP 115/78
[2017-01-14] MEDS ORDERED: fentaNYL CITRATE 100 MCG/2 ML VL IV ONE (18:00)
== END 2017-01-14 18:04 | disposition home or self-care (01) ==
LOC: SUR 11:05
PROVIDERS: ATTEND Podiatrist Foot & Ankle Surgery
DX: M20.41 Other hammer toe(s) (acquired), right foot (principal); I50.9 Heart failure, unspecified; J44.9 Chronic obstructive pulmonary disease, unspecified; F41.9 Anxiety disorder, unspecified; F32.9 Major depressive disorder, single episode, unspecified
CPT/HCPCS: 28285; 36415; 80053; 85025; 85610; 85730; J1170; J2250; J2704; J3010; J3490

== ENCOUNTER 2017-03-11 08:08 | Day surgery (SDC) | payer MEDICARE, MEDICAID ==
[2017-03-06 11:29] LABS: Basophils # (auto) 0.1 uL; Basophils % (auto) 0.6 % (0.0-2.0); Eosinophils # (auto) 0.1 uL; Eosinophils % (auto) 1.1 % (0.0-7.0); Hematocrit 42.7 % (36.0-46.0); Hemoglobin 14.7 g/dL (12.2-16.2); Lymphocytes # (auto) 2.2 uL; Lymphocytes % (auto) 22.9 % (10.0-50.0); Mean Corpuscular Hemoglobin 32.2 pg (28.0-32.0); Mean Corpuscular Hgb Conc. 34.3 g/dL (32.0-36.0); Mean Platelet Volume 6.2 fL (7.4-10.4); Monocytes # (auto) 0.8 uL; Monocytes % (auto) 8.7 % (0.0-12.0); Neutrophils # (auto) 6.3 uL; Neutrophils % (auto) 66.7 % (37.0-80.0); Platelet Count (auto) 252 10^3/uL (140-450); Red Cell Distribution Width 14.3 % (11.6-16.0); White Blood Cell 9.4 10^3/uL (4.4-10.8)
[2017-03-06 11:47] LABS: Urine Bilirubin Negative (Negative); Urine Blood Negative /uL (Negative); Urine Color Yellow (Yellow); Urine Glucose Normal (Normal); Urine Ketone Negative (Negative); Urine Mucus FEW (None Seen); Urine Nitrite Negative (Negative); Urine RBC 2 /hpf (0 - 4); Urine Squamous Epithelial Cell FEW /hpf (<5); Urine Urobilinogen Normal (Negative)
[2017-03-06 11:55] LABS: Albumin 3.6 g/dL (3.4-5.0); Bilirubin, Total 0.4 mg/dL (0.2-1.0); Calcium 8.5 mg/dL (8.5-10.1); Potassium 4.2 mmol/L (3.5-5.1); Total Protein 7.3 g/dL (6.4-8.2)
[2017-03-06 12:02] LABS: INR 0.9 (0.9-1.15); Partial Thromboplastin Time 22.3 sec (22.64-33.71); Prothrombin Time 9.8 sec (9.37-12.3)
[~2017-03-11] VITALS: Ht 154.9 cm; Wt 50.8 kg
[2017-03-11] MEDS ORDERED: ceFAZolin 1GM/50ML D5W 50 ML IV ONE (08:37)
[2017-03-11] MEDS ORDERED: ceFAZolin 1GM VL ONE (11:42)
[2017-03-11] MEDS ORDERED: BUPIVACAINE 0.75% INJ 10ML MPV SDV IJ ONE (11:43)
[2017-03-11] MEDS ORDERED: MIDAZOLAM HCL 1MG/1ML-2 ML VIAL ONE (11:46)
[2017-03-11] MEDS ORDERED: PROPOFOL 10 MG/ML 20 ML IV ONE (11:52)
[2017-03-11] MEDS ORDERED: fentaNYL CITRATE 100 MCG/2 ML VL ONE (12:08)
[2017-03-11] MEDS ORDERED: ONDANSETRON HCL 4 MG/2 ML VIAL ONE (12:08)
[2017-03-11] MEDS ORDERED: DEXAMETHASONE SOD PHOS 10MG/1ML VIAL INJ ONE (12:08)
[2017-03-11] MEDS ORDERED: ONDANSETRON HCL 4 MG/2 ML VIAL IV ONE (12:15)
[2017-03-11] MEDS ORDERED: HYDROmorphone HCL 2 MG/ML VL IV PRN (12:15)
[2017-03-11] MEDS ORDERED: fentaNYL CITRATE 100 MCG/2 ML VL IV PRN (12:15)
[2017-03-11 13:23] VITALS: BP 137/81
== END 2017-03-11 13:30 | disposition home or self-care (01) ==
LOC: SUR 08:08
PROVIDERS: ATTEND Podiatrist Foot & Ankle Surgery
DX: M20.42 Other hammer toe(s) (acquired), left foot (principal); M20.41 Other hammer toe(s) (acquired), right foot; I50.9 Heart failure, unspecified; J44.9 Chronic obstructive pulmonary disease, unspecified; M81.0 Age-related osteoporosis without current pathological fracture; F41.9 Anxiety disorder, unspecified; F32.9 Major depressive disorder, single episode, unspecified; Z90.49 Acquired absence of other specified parts of digestive tract
CPT/HCPCS: 28285; 36415; 80053; 81001; 85025; 85610; 85730; 88304; 88311; J0690; J1100; J2250; J2405; J2704; J3010; J3490; L3260

== ENCOUNTER → 2017-05-19 | Outpatient (CLI) | payer MEDICARE, MEDICAID ==
[2017-05-19 10:40] LABS: Albumin 3.2 g/dL (3.4-5.0); BUN/Creatinine Ratio 21.7; Bilirubin, Total 0.3 mg/dL (0.2-1.0); Calcium 8.5 mg/dL (8.5-10.1); Potassium 4.4 mmol/L (3.5-5.1); Total Protein 6.8 g/dL (6.4-8.2)
[2017-05-19 19:19] LABS: Basophils # (auto) 0 uL; Basophils % (auto) 0.6 % (0.0-2.0); Eosinophils # (auto) 0.1 uL; Eosinophils % (auto) 1.8 % (0.0-7.0); Hematocrit 42.1 % (36.0-46.0); Hemoglobin 13.8 g/dL (12.2-16.2); Lymphocytes # (auto) 1.5 uL; Lymphocytes % (auto) 21.4 % (10.0-50.0); Mean Corpuscular Hemoglobin 31.4 pg (28.0-32.0); Mean Corpuscular Hgb Conc. 32.8 g/dL (32.0-36.0); Mean Corpuscular Volume 95.5 fL (80.0-100.0); Mean Platelet Volume 6.8 fL (6.9-10.8); Monocytes # (auto) 0.9 uL; Monocytes % (auto) 12.2 % (0.0-12.0); Neutrophils # (auto) 4.5 uL; Platelet Count (auto) 288 10^3/uL (140-450); Red Cell Distribution Width 15.4 % (11.8-14.3); White Blood Cell 7.1 10^3/uL (4.4-10.8)
== END | disposition home or self-care (01) ==
LOC: LAB 08:53
DX: I10 Essential (primary) hypertension (principal); M06.9 Rheumatoid arthritis, unspecified; I70.0 Atherosclerosis of aorta; E78.00 Pure hypercholesterolemia, unspecified; Z79.899 Other long term (current) drug therapy
CPT/HCPCS: 36415; 80053; 85025; 85652; 86141

== ENCOUNTER → 2017-05-28 | Outpatient (CLI) | payer MEDICARE, MEDICAID | END | disposition home or self-care (01) | LOC: XY 12:40 | DX: I70.298 Other atherosclerosis of native arteries of extremities, other extremity (principal); M06.9 Rheumatoid arthritis, unspecified | CPT/HCPCS: 93926 ==

== ENCOUNTER → 2017-09-09 | Outpatient (CLI) | payer MEDICARE, MEDICAID ==
[2017-09-09 08:59] LABS: Basophils # (auto) 0 uL; Basophils % (auto) 0.5 % (0.0-2.0); Eosinophils # (auto) 0.1 uL; Eosinophils % (auto) 1.2 % (0.0-7.0); Hematocrit 44.1 % (36.0-46.0); Hemoglobin 14.8 g/dL (12.2-16.2); Lymphocytes # (auto) 1.6 uL; Lymphocytes % (auto) 29.7 % (10.0-50.0); Mean Corpuscular Hemoglobin 31.9 pg (28.0-32.0); Mean Corpuscular Hgb Conc. 33.4 g/dL (32.0-36.0); Mean Corpuscular Volume 95.5 fL (80.0-100.0); Monocytes # (auto) 0.5 uL; Monocytes % (auto) 10.2 % (0.0-12.0); Neutrophils # (auto) 3.1 uL; Neutrophils % (auto) 58.4 % (37.0-80.0); Nucleated Red Blood Cells % 0.1 %; Platelet Count (auto) 211 10^3/uL (140-450); Red Blood Cells 4.62 10^6/uL (4.0-5.20); Red Cell Distribution Width 14.9 % (11.8-14.3); White Blood Cell 5.4 10^3/uL (4.4-10.8)
[2017-09-09 09:03] LABS: Potassium 4.1 mmol/L (3.5-5.1)
== END | disposition home or self-care (01) ==
LOC: LAB 08:15
PROVIDERS: ATTEND Internal Medicine
DX: J45.909 Unspecified asthma, uncomplicated (principal); M19.90 Unspecified osteoarthritis, unspecified site; R79.89 Other specified abnormal findings of blood chemistry; Z79.899 Other long term (current) drug therapy
CPT/HCPCS: 36415; 80061; 84132; 84443; 85025

== ENCOUNTER → 2017-09-30 | Outpatient (CLI) | payer MEDICARE, MEDICAID ==
[~2017-09-30] MED LIST changes: +ALBUTEROL SULF 2.5 MG/0.5ML(0.5%) NEB SOLN ONE; +PREG50CA PO
== END | disposition home or self-care (01) ==
LOC: RT 08:31
PROVIDERS: ATTEND Internal Medicine Pulmonary Disease
DX: J45.909 Unspecified asthma, uncomplicated (principal); I10 Essential (primary) hypertension; M06.9 Rheumatoid arthritis, unspecified; E78.00 Pure hypercholesterolemia, unspecified; Z79.899 Other long term (current) drug therapy
CPT/HCPCS: 36600; 82805; 94060; 94640

== ENCOUNTER → 2017-10-21 | Outpatient (CLI) | payer MEDICARE, MEDICAID ==
[~2017-10-21] MED LIST changes: -ALBUTEROL SULF 2.5 MG/0.5ML(0.5%) NEB SOLN ONE; -PREG50CA PO
== END | disposition home or self-care (01) ==
LOC: LAB 15:15
PROVIDERS: ATTEND Urology
DX: N39.0 Urinary tract infection, site not specified (principal); E78.00 Pure hypercholesterolemia, unspecified; M06.9 Rheumatoid arthritis, unspecified; I10 Essential (primary) hypertension; Z79.899 Other long term (current) drug therapy
CPT/HCPCS: 87086

== ENCOUNTER 2017-11-03 09:31 | Inpatient (IN) | payer MEDICARE, MEDICAID ==
[~2017-11-03] VITALS: Ht 154.9 cm; Wt 56.7 kg
[2017-11-03] MEDS ORDERED: MORPHINE SULFATE 4 MG/ML SYR/VIAL IV ONE (10:15)
[2017-11-03] MEDS ORDERED: METOCLOPRAMIDE HCL 5MG/ml INJ 2ml VIAL IV ONE (10:15)
[2017-11-03 10:25] LABS: Basophils # (auto) 0 uL; Basophils % (auto) 0.3 % (0.0-2.0); Eosinophils # (auto) 0.1 uL; Eosinophils % (auto) 1.3 % (0.0-7.0); Hematocrit 38.7 % (36.0-46.0); Hemoglobin 13.1 g/dL (12.2-16.2); Lymphocytes # (auto) 1.1 uL; Lymphocytes % (auto) 11.5 % (10.0-50.0); Mean Corpuscular Hemoglobin 31.9 pg (28.0-32.0); Mean Corpuscular Hgb Conc. 33.9 g/dL (32.0-36.0); Monocytes # (auto) 1.2 uL; Monocytes % (auto) 12.3 % (0.0-12.0); Neutrophils % (auto) 74.6 % (37.0-80.0); Platelet Count (auto) 180 10^3/uL (140-450); Red Blood Cells 4.11 10^6/uL (4.0-5.20); Red Cell Distribution Width 14.6 % (11.8-14.3); White Blood Cell 9.4 10^3/uL (4.4-10.8)
[2017-11-03 10:48] LABS: Albumin 2.8 g/dL (3.4-5.0); BUN/Creatinine Ratio 6.3; Bilirubin, Total 0.7 mg/dL (0.2-1.0); Total Protein 6.4 g/dL (6.4-8.2)
[2017-11-03 11:05] LABS: Potassium 5.9 mmol/L (3.5-5.1)
[2017-11-03] MEDS ORDERED: SODIUM POLYSTYRENE SULF 15GM/60ML SUSP PO ONE (11:45)
[2017-11-03] MEDS ORDERED: ONDANSETRON HCL 4 MG/2 ML VIAL IV PRN (13:30)
[2017-11-03] MEDS ORDERED: LACTULOSE 20Gm/30ML SOLN PO ONE (13:30)
[2017-11-03] MEDS ORDERED: NITROGLYCERIN 0.4 MG SL TAB SL PRN (13:30)
[2017-11-03] MEDS ORDERED: methylPREDNISolone SOD SUCC 40 MG/ML VL IV ONE (13:30)
[2017-11-03] MEDS ORDERED: MORPHINE SULFATE 4 MG/ML SYR/VIAL IV PRN (13:30)
[2017-11-03] MEDS ORDERED: PANTOPRAZOLE 40 MG/10 ML VIAL IV ONE (13:30)
[2017-11-03] MEDS: SODIUM CHLORIDE 0.9% 1,000 ML IV SCH (14:17)
[2017-11-03] MEDS: HYDROcodone-ACET 5/325MG TAB PO PRN (14:53)
[2017-11-03] MEDS: FLUoxetine HCL 20 MG CAP PO SCH (14:53)
[2017-11-03 20:00] VITALS: BP 118/77
[2017-11-03] MEDS: PROMETHAZINE HCL 25 MG/ML 1ML IV PRN (20:39)
[2017-11-03] MEDS: methylPREDNISolone SOD SUCC 40 MG/ML VL IV SCH (21:51)
[2017-11-03] MEDS ORDERED: PREG50CA PO (22:14)
[2017-11-03 22:48] VITALS: BP 118/77
[2017-11-04 05:36] LABS: Basophils # (auto) 0 uL; Basophils % (auto) 0.1 % (0.0-2.0); Eosinophils # (auto) 0 uL; Hematocrit 39.9 % (36.0-46.0); Hemoglobin 13.5 g/dL (12.2-16.2); Lymphocytes # (auto) 0.4 uL; Lymphocytes % (auto) 6.8 % (10.0-50.0); Mean Corpuscular Hemoglobin 31.9 pg (28.0-32.0); Mean Corpuscular Hgb Conc. 33.7 g/dL (32.0-36.0); Mean Corpuscular Volume 94.6 fL (80.0-100.0); Monocytes # (auto) 0.1 uL; Monocytes % (auto) 1.2 % (0.0-12.0); Neutrophils % (auto) 91.9 % (37.0-80.0); Nucleated Red Blood Cells % 0.1 %; Platelet Count (auto) 182 10^3/uL (140-450); Red Blood Cells 4.22 10^6/uL (4.0-5.20); Red Cell Distribution Width 14.4 % (11.8-14.3); White Blood Cell 6.5 10^3/uL (4.4-10.8)
[2017-11-04 06:03] VITALS: BP 115/65
[2017-11-04 06:03] LABS: Calcium 7.4 mg/dL (8.5-10.1); Potassium 5.3 mmol/L (3.5-5.1)
[2017-11-04] MEDS: SODIUM CHLORIDE 0.9% 1,000 ML IV SCH ×3 (06:32→18:29)
[2017-11-04 08:03] LABS: Urine Bacteria MOD /hpf (None Seen); Urine Blood 3+ /uL (Negative); Urine Specific Gravity 1.011 (1.001-1.035); Urine WBC 489 /hpf (0 - 5); Urine WBC Clumps PRESENT /hpf (None Seen)
[2017-11-04 08:30] VITALS: BP 102/53
[2017-11-04] MEDS: methylPREDNISolone SOD SUCC 40 MG/ML VL IV SCH (10:03)
[2017-11-04] MEDS: PANTOPRAZOLE 40 MG/10 ML VIAL IV SCH (10:03)
[2017-11-04] MEDS: FLUoxetine HCL 20 MG CAP PO SCH (10:04)
[2017-11-04] MEDS: GABAPENTIN 100 MG CAP PO SCH (10:04)
[2017-11-04] MEDS: FOLIC ACID 1 MG TAB PO SCH (10:04)
[2017-11-04] MEDS: HYDROcodone-ACET 5/325MG TAB PO PRN ×2 (10:05→21:30)
[2017-11-04] MEDS: MORPHINE SULFATE 4 MG/ML SYR/VIAL IV PRN (12:26)
[2017-11-04] MEDS: PROMETHAZINE HCL 25 MG/ML 1ML IV PRN (12:31)
[2017-11-04 13:03] VITALS: BP 107/56
[2017-11-04 17:10] VITALS: BP 102/64
[2017-11-04 20:00] VITALS: BP 105/66
[2017-11-04 21:52] LABS: Urine Bacteria MANY /hpf (None Seen); Urine Blood 3+ /uL (Negative); Urine Specific Gravity 1.016 (1.001-1.035); Urine WBC 1219 /hpf (0 - 5); Urine WBC Clumps PRESENT /hpf (None Seen)
[2017-11-04 22:00] VITALS: BP 105/66
[2017-11-04 22:08] LABS: Creatinine, Urine 46 mg/dL (30.0-125.0); Sodium Urine 29 mmol/L (40-220)
[2017-11-05] VITALS (7 sets, daily range): BP systolic 100–112; BP diastolic 54–66
[2017-11-05] MEDS: SODIUM CHLORIDE 0.9% 1,000 ML IV SCH ×3 (05:56→22:12)
[2017-11-05 07:28] LABS: BUN/Creatinine Ratio 9.4; Calcium 6.9 mg/dL (8.5-10.1); Potassium 5.2 mmol/L (3.5-5.1)
[2017-11-05 07:43] LABS: Albumin 2.4 g/dL (3.4-5.0); Bilirubin, Direct 0.1 mg/dL (0-0.2); Bilirubin, Total 0.3 mg/dL (0.2-1.0); Total Protein 5.5 g/dL (6.4-8.2); Uric Acid 8.7 mg/dL (2.6-6.0)
[2017-11-05 08:06] LABS: Phosphorus 8.5 mg/dL (2.5-4.90)
[2017-11-05] MEDS: PANTOPRAZOLE 40 MG/10 ML VIAL IV SCH (09:14)
[2017-11-05] MEDS: GABAPENTIN 100 MG CAP PO SCH (09:15)
[2017-11-05] MEDS: predniSONE 1 MG TAB PO SCH (09:15)
[2017-11-05] MEDS: FLUoxetine HCL 20 MG CAP PO SCH (09:15)
[2017-11-05] MEDS: HYDROcodone-ACET 5/325MG TAB PO PRN ×3 (09:15→20:25)
[2017-11-05] MEDS: FOLIC ACID 1 MG TAB PO SCH (09:15)
[2017-11-05] MEDS: PROMETHAZINE HCL 25 MG/ML 1ML IV PRN (09:22)
[2017-11-05] MEDS ORDERED: cefTRIAXone 1GM/10ml IVPUSH 10 ML IV ONE (11:45)
[2017-11-05] MEDS ORDERED: IOTHALAMATE MEGLUMINE INJ 250ML BOT UR ONE (11:47)
[2017-11-05] MEDS: FLORASTOR (S. BOULARDII) 250 MG CAP PO SCH (12:11)
[2017-11-05] MEDS: metroNIDAZOLE 500 MG TAB PO SCH ×2 (14:13→22:02)
[2017-11-05] MEDS: MORPHINE SULFATE 4 MG/ML SYR/VIAL IV PRN (20:25)
[2017-11-05] MEDS ORDERED: ACETAMINOPHEN 325 MG TAB PO PRN (21:00)
[2017-11-05] MEDS ORDERED: ALBUTEROL SULF 2.5 MG/0.5ML(0.5%) NEB SOLN NEB PRN (21:00)
[2017-11-05 21:54] LABS: Basophils # (auto) 0 uL; Basophils % (auto) 0.1 % (0.0-2.0); Eosinophils # (auto) 0 uL; Eosinophils % (auto) 0.1 % (0.0-7.0); Hematocrit 38.5 % (36.0-46.0); Lymphocytes # (auto) 0.3 uL; Lymphocytes % (auto) 1.6 % (10.0-50.0); Mean Corpuscular Hgb Conc. 33.7 g/dL (32.0-36.0); Mean Corpuscular Volume 94.9 fL (80.0-100.0); Monocytes # (auto) 0.1 uL; Monocytes % (auto) 0.8 % (0.0-12.0); Neutrophils # (auto) 16.6 uL; Neutrophils % (auto) 97.4 % (37.0-80.0); Nucleated Red Blood Cells % 0.1 %; Platelet Count (auto) 194 10^3/uL (140-450); Red Blood Cells 4.06 10^6/uL (4.0-5.20)
[2017-11-05 22:15] LABS: Albumin 2.6 g/dL (3.4-5.0); BUN/Creatinine Ratio 8.9; Bilirubin, Total 0.3 mg/dL (0.2-1.0); Calcium 6.5 mg/dL (8.5-10.1); Potassium 4.8 mmol/L (3.5-5.1); Total Protein 5.9 g/dL (6.4-8.2)
[2017-11-05] MEDS: ACETAMINOPHEN 325 MG TAB PO PRN (23:32)
[2017-11-06] MEDS: MORPHINE SULFATE 4 MG/ML SYR/VIAL IV PRN ×4 (00:26→19:58)
[2017-11-06] MEDS: SODIUM CHLORIDE 0.9% 1,000 ML IV SCH ×3 (04:55→22:08)
[2017-11-06 05:45] VITALS: BP 86/48
[2017-11-06] MEDS: metroNIDAZOLE 500 MG TAB PO SCH ×3 (06:27→22:08)
[2017-11-06 06:38] LABS: BUN/Creatinine Ratio 9.7; Calcium 6.5 mg/dL (8.5-10.1); Potassium 4.6 mmol/L (3.5-5.1)
[2017-11-06 08:38] VITALS: BP 99/61
[2017-11-06] MEDS: cefTRIAXone 1GM/10ml IVPUSH 10 ML IV SCH (09:53)
[2017-11-06] MEDS: FLORASTOR (S. BOULARDII) 250 MG CAP PO SCH (09:53)
[2017-11-06] MEDS: PANTOPRAZOLE 40 MG/10 ML VIAL IV SCH (09:53)
[2017-11-06] MEDS: FOLIC ACID 1 MG TAB PO SCH (09:54)
[2017-11-06] MEDS: FLUoxetine HCL 20 MG CAP PO SCH (09:54)
[2017-11-06] MEDS: predniSONE 1 MG TAB PO SCH (09:54)
[2017-11-06] MEDS: GABAPENTIN 100 MG CAP PO SCH (09:54)
[2017-11-06] MEDS: PROMETHAZINE HCL 25 MG/ML 1ML IV PRN (10:51)
[2017-11-06 15:03] VITALS: BP 89/62
[2017-11-06 17:23] VITALS: BP 104/64
[2017-11-06 20:00] VITALS: BP 104/75
[2017-11-06 21:57] VITALS: BP 104/75
[2017-11-06] MEDS: ACETAMINOPHEN 325 MG TAB PO PRN (22:11)
[2017-11-07] MEDS: MORPHINE SULFATE 4 MG/ML SYR/VIAL IV PRN ×3 (02:31→11:22)
[2017-11-07] MEDS: SODIUM CHLORIDE 0.9% 1,000 ML IV SCH ×2 (03:45→14:09)
[2017-11-07] MEDS: HYDROcodone-ACET 5/325MG TAB PO PRN ×3 (04:33→20:58)
[2017-11-07 05:30] VITALS: BP 117/74
[2017-11-07] MEDS: metroNIDAZOLE 500 MG TAB PO SCH ×3 (06:42→21:24)
[2017-11-07 06:55] LABS: Basophils # (auto) 0 uL; Basophils % (auto) 0.2 % (0.0-2.0); Eosinophils # (auto) 0.1 uL; Eosinophils % (auto) 1.4 % (0.0-7.0); Hematocrit 32.1 % (36.0-46.0); Hemoglobin 10.9 g/dL (12.2-16.2); Lymphocytes # (auto) 0.5 uL; Lymphocytes % (auto) 5.1 % (10.0-50.0); Mean Corpuscular Hemoglobin 32.2 pg (28.0-32.0); Mean Corpuscular Volume 94.6 fL (80.0-100.0); Monocytes # (auto) 0.8 uL; Monocytes % (auto) 8.2 % (0.0-12.0); Neutrophils # (auto) 8.6 uL; Neutrophils % (auto) 85.1 % (37.0-80.0); Platelet Count (auto) 161 10^3/uL (140-450); Red Cell Distribution Width 15.3 % (11.8-14.3); White Blood Cell 10.1 10^3/uL (4.4-10.8)
[2017-11-07 07:32] LABS: Calcium 7.2 mg/dL (8.5-10.1)
[2017-11-07 07:45] LABS: Potassium 3.8 mmol/L (3.5-5.1)
[2017-11-07 08:02] VITALS: BP 102/69
[2017-11-07] MEDS: PANTOPRAZOLE 40 MG/10 ML VIAL IV SCH (09:14)
[2017-11-07] MEDS: FLUoxetine HCL 20 MG CAP PO SCH (09:14)
[2017-11-07] MEDS: cefTRIAXone 1GM/10ml IVPUSH 10 ML IV SCH (09:14)
[2017-11-07] MEDS: FOLIC ACID 1 MG TAB PO SCH (09:15)
[2017-11-07] MEDS: GABAPENTIN 100 MG CAP PO SCH (09:15)
[2017-11-07] MEDS: FLORASTOR (S. BOULARDII) 250 MG CAP PO SCH (09:25)
[2017-11-07] MEDS: predniSONE 1 MG TAB PO SCH (09:25)
[2017-11-07] MEDS: PROMETHAZINE HCL 25 MG/ML 1ML IV PRN (11:29)
[2017-11-07 12:51] VITALS: BP 113/62
[2017-11-07] MEDS ORDERED: DOCUSATE SOD 100 MG CAP PO ONE (16:00)
[2017-11-07] MEDS: SOD CHL 0.45% 1,000 ML IV SCH (16:08)
[2017-11-07 17:03] VITALS: BP 122/63
[2017-11-07] MEDS: AMOXICILLIN/CLAVUL 875 MG TAB PO SCH (21:19)
[2017-11-07 22:00] VITALS: BP 128/78
[2017-11-08] MEDS: SOD CHL 0.45% 1,000 ML IV SCH ×2 (01:35→14:17)
[2017-11-08] MEDS: MORPHINE SULFATE 4 MG/ML SYR/VIAL IV PRN ×4 (02:59→20:59)
[2017-11-08 05:00] VITALS: BP 128/65
[2017-11-08] MEDS: metroNIDAZOLE 500 MG TAB PO SCH ×3 (05:25→21:13)
[2017-11-08 07:26] LABS: Potassium 3.7 mmol/L (3.5-5.1)
[2017-11-08 07:30] LABS: BUN/Creatinine Ratio 22.1; Calcium 7.6 mg/dL (8.5-10.1)
[2017-11-08] MEDS: PROMETHAZINE HCL 25 MG/ML 1ML IV PRN ×3 (08:32→20:58)
[2017-11-08 08:45] VITALS: BP 150/75
[2017-11-08] MEDS: FOLIC ACID 1 MG TAB PO SCH (09:44)
[2017-11-08] MEDS: FLUoxetine HCL 20 MG CAP PO SCH (09:44)
[2017-11-08] MEDS: PANTOPRAZOLE 40 MG TAB PO SCH (09:44)
[2017-11-08] MEDS: GABAPENTIN 100 MG CAP PO SCH (09:45)
[2017-11-08] MEDS: AMOXICILLIN/CLAVUL 875 MG TAB PO SCH ×2 (09:45→21:13)
[2017-11-08] MEDS: predniSONE 1 MG TAB PO SCH (09:45)
[2017-11-08] MEDS: FLORASTOR (S. BOULARDII) 250 MG CAP PO SCH (09:46)
[2017-11-08 13:00] VITALS: BP 148/81
[2017-11-08] MEDS ORDERED: LACTULOSE 20Gm/30ML SOLN PO ONE (13:15)
[2017-11-08] MEDS ORDERED: LACTULOSE 20Gm/30ML SOLN PO PRN (13:15)
[2017-11-08] MEDS ORDERED: ALBUTEROL SULF 2.5 MG/0.5ML(0.5%) NEB SOLN NEB PRN (13:45)
[2017-11-08 16:20] VITALS: BP 138/77
[2017-11-08] MEDS: IPRATROPIUM BROM 0.5 MG/2.5ML INH SOL NEB SCH (18:47)
[2017-11-08] MEDS: ALBUTEROL SULF 2.5 MG/0.5ML(0.5%) NEB SOLN NEB SCH (18:47)
[2017-11-08 20:17] VITALS: BP 148/81
[2017-11-08 22:00] VITALS: BP 136/83
[2017-11-09] MEDS: PROMETHAZINE HCL 25 MG/ML 1ML IV PRN ×4 (00:37→21:21)
[2017-11-09] MEDS: MORPHINE SULFATE 4 MG/ML SYR/VIAL IV PRN ×3 (00:38→13:21)
[2017-11-09] MEDS: IPRATROPIUM BROM 0.5 MG/2.5ML INH SOL NEB SCH ×5 (00:39→19:04)
[2017-11-09] MEDS: ALBUTEROL SULF 2.5 MG/0.5ML(0.5%) NEB SOLN NEB SCH ×5 (00:40→19:04)
[2017-11-09] MEDS: metroNIDAZOLE 500 MG TAB PO SCH ×3 (05:50→21:19)
[2017-11-09] MEDS: SOD CHL 0.45% 1,000 ML IV SCH (07:45)
[2017-11-09 09:00] VITALS: BP 136/79
[2017-11-09] MEDS: PANTOPRAZOLE 40 MG TAB PO SCH (10:23)
[2017-11-09] MEDS: FLUoxetine HCL 20 MG CAP PO SCH (10:23)
[2017-11-09] MEDS: FOLIC ACID 1 MG TAB PO SCH (10:23)
[2017-11-09] MEDS: AMOXICILLIN/CLAVUL 875 MG TAB PO SCH ×2 (10:23→21:18)
[2017-11-09] MEDS: GABAPENTIN 100 MG CAP PO SCH (10:23)
[2017-11-09] MEDS: predniSONE 1 MG TAB PO SCH (10:23)
[2017-11-09 13:00] VITALS: BP 137/83
[2017-11-09] MEDS: FLORASTOR (S. BOULARDII) 250 MG CAP PO SCH (13:00)
[2017-11-09] MEDS ORDERED: FUROSEMIDE 40 MG/4 ML VIAL IV ONE (14:30)
[2017-11-09] MEDS ORDERED: POTASSIUM CHL 20 Meq TABLET PO ONE (14:30)
[2017-11-09 17:00] VITALS: BP 130/77
[2017-11-09] MEDS: HYDROcodone-ACET 5/325MG TAB PO PRN (17:05)
[2017-11-09] MEDS: ACETAMINOPHEN 325 MG TAB PO PRN (21:19)
[2017-11-09 22:00] VITALS: BP 137/100
[2017-11-10] MEDS: ALBUTEROL SULF 2.5 MG/0.5ML(0.5%) NEB SOLN NEB SCH ×5 (00:28→22:40)
[2017-11-10] MEDS: IPRATROPIUM BROM 0.5 MG/2.5ML INH SOL NEB SCH ×5 (00:28→22:40)
[2017-11-10] MEDS: HYDROcodone-ACET 5/325MG TAB PO PRN ×3 (00:41→20:04)
[2017-11-10] MEDS: PROMETHAZINE HCL 25 MG/ML 1ML IV PRN ×3 (05:05→20:03)
[2017-11-10] MEDS: ACETAMINOPHEN 325 MG TAB PO PRN ×2 (05:06→20:04)
[2017-11-10] MEDS: metroNIDAZOLE 500 MG TAB PO SCH ×3 (05:06→20:03)
[2017-11-10 05:40] VITALS: BP 142/82
[2017-11-10 08:58] VITALS: BP 143/88
[2017-11-10] MEDS: AMOXICILLIN/CLAVUL 875 MG TAB PO SCH ×2 (10:41→20:03)
[2017-11-10] MEDS: GABAPENTIN 100 MG CAP PO SCH (10:41)
[2017-11-10] MEDS: FLUoxetine HCL 20 MG CAP PO SCH (10:41)
[2017-11-10] MEDS: PANTOPRAZOLE 40 MG TAB PO SCH (10:41)
[2017-11-10] MEDS: FLORASTOR (S. BOULARDII) 250 MG CAP PO SCH (10:41)
[2017-11-10] MEDS: FOLIC ACID 1 MG TAB PO SCH (10:42)
[2017-11-10 12:47] VITALS: BP 121/75
[2017-11-10] MEDS: predniSONE 1 MG TAB PO SCH (15:55)
[2017-11-10 17:00] VITALS: BP 140/97
[2017-11-10] MEDS: LORazepam 2MG/ML-1ML VIAL IV PRN (20:41)
[2017-11-10 22:00] VITALS: BP 107/70
[2017-11-11] MEDS: PROMETHAZINE HCL 25 MG/ML 1ML IV PRN (01:22)
[2017-11-11] MEDS: HYDROcodone-ACET 5/325MG TAB PO PRN ×2 (01:22→13:05)
[2017-11-11 05:00] VITALS: BP 149/81
[2017-11-11] MEDS: metroNIDAZOLE 500 MG TAB PO SCH ×2 (06:41→13:05)
[2017-11-11] MEDS: IPRATROPIUM BROM 0.5 MG/2.5ML INH SOL NEB SCH ×2 (06:57→12:07)
[2017-11-11] MEDS: ALBUTEROL SULF 2.5 MG/0.5ML(0.5%) NEB SOLN NEB SCH ×2 (06:57→12:07)
[2017-11-11 08:00] VITALS: BP 144/76
[2017-11-11] MEDS ORDERED: BOOST 8 ounces PO SCH (08:00)
[2017-11-11 09:48] VITALS: BP 144/76
[2017-11-11] MEDS: FLUoxetine HCL 20 MG CAP PO SCH (10:12)
[2017-11-11] MEDS: PANTOPRAZOLE 40 MG TAB PO SCH (10:12)
[2017-11-11] MEDS: GABAPENTIN 100 MG CAP PO SCH (10:12)
[2017-11-11] MEDS: FOLIC ACID 1 MG TAB PO SCH (10:12)
[2017-11-11] MEDS: FLORASTOR (S. BOULARDII) 250 MG CAP PO SCH (10:12)
[2017-11-11] MEDS: AMOXICILLIN/CLAVUL 875 MG TAB PO SCH (10:13)
[2017-11-11] MEDS: LORazepam 2MG/ML-1ML VIAL IV PRN (10:17)
[2017-11-11] MEDS: predniSONE 1 MG TAB PO SCH (11:05)
[2017-11-11 12:56] VITALS: BP 101/55
== END 2017-11-11 16:20 | disposition home or self-care (01) | DRG 371 ==
LOC: ER 09:31 → TELE 09:32 → TELE-WESTW 18:52
PROVIDERS: ADMIT Internal Medicine; ATTEND Internal Medicine
DX: A04.72 Enterocolitis due to Clostridium difficile, not specified as recurrent (principal); N17.0 Acute kidney failure with tubular necrosis; N39.0 Urinary tract infection, site not specified; E44.0 Moderate protein-calorie malnutrition; E87.1 Hypo-osmolality and hyponatremia; N13.30 Unspecified hydronephrosis; E87.5 Hyperkalemia; M06.9 Rheumatoid arthritis, unspecified; N81.10 Cystocele, unspecified; N18.2 Chronic kidney disease, stage 2 (mild); B95.8 Unspecified staphylococcus as the cause of diseases classified elsewhere; E86.9 Volume depletion, unspecified; F41.9 Anxiety disorder, unspecified; F32.9 Major depressive disorder, single episode, unspecified; J44.9 Chronic obstructive pulmonary disease, unspecified; K21.9 Gastro-esophageal reflux disease without esophagitis; M79.7 Fibromyalgia; T83.031A Leakage of indwelling urethral catheter, initial encounter; Z96.641 Presence of right artificial hip joint; G89.29 Other chronic pain; M19.90 Unspecified osteoarthritis, unspecified site; N39.3 Stress incontinence (female) (male); Z87.11 Personal history of peptic ulcer disease; Z90.49 Acquired absence of other specified parts of digestive tract; Z79.899 Other long term (current) drug therapy
CPT/HCPCS: 36415; 71045; 74176; 74430; 76705; 80048; 80053; 80076; 81001; 82150; 82270; 82550; 82570; 82962; 83520; 83690; 84100; 84300; 84443; 84550; 85025; 86160; 86225; 86235; 86256; 87086; 87088; 87186; 87493; 93005; 94640; 94761; 96361; 96374; 96375; C9113

== ENCOUNTER 2017-11-26 20:08 | Inpatient (IN) | payer MEDICARE, MEDICAID ==
[~2017-11-26] VITALS: Ht 152.4 cm; Wt 64.9 kg
[~2017-11-26 20:08] MED LIST changes: +PREG50CA PO
[2017-11-26] MEDS ORDERED: IBUPROFEN 800 MG TAB PO ONE (20:30)
[2017-11-26] MEDS ORDERED: SODIUM CHLORIDE 0.9% 1,000 ML IV ONE (21:07)
[2017-11-26] MEDS ORDERED: metroNIDAZOLE 500MG/100ML 100 ML IV ONE (21:15)
[2017-11-26] MEDS ORDERED: ACETAMINOPHEN 650 mg PER 20 mL UD PO ONE (21:15)
[2017-11-26] MEDS ORDERED: CIPROFLOXACIN 400MG/200ML 200 ML IV ONE (21:15)
[2017-11-26 21:54] LABS: Basophils # (auto) 0.1 uL; Basophils % (auto) 0.5 % (0.0-2.0); Eosinophils # (auto) 0 uL; Hematocrit 33.8 % (36.0-46.0); Hemoglobin 11.4 g/dL (12.2-16.2); Lymphocytes # (auto) 0.8 uL; Lymphocytes % (auto) 6.5 % (10.0-50.0); Mean Corpuscular Hemoglobin 31.6 pg (28.0-32.0); Mean Corpuscular Hgb Conc. 33.8 g/dL (32.0-36.0); Mean Corpuscular Volume 93.3 fL (80.0-100.0); Monocytes # (auto) 1.1 uL; Monocytes % (auto) 9.5 % (0.0-12.0); Neutrophils % (auto) 83.5 % (37.0-80.0); Nucleated Red Blood Cells % 0.1 %; Platelet Count (auto) 225 10^3/uL (140-450); Red Blood Cells 3.62 10^6/uL (4.0-5.20); Red Cell Distribution Width 16.1 % (11.8-14.3); White Blood Cell 11.9 10^3/uL (4.4-10.8)
[2017-11-26 22:08] LABS: INR 1.17 (0.9-1.15); Partial Thromboplastin Time 27.5 sec (23.78-33.04); Prothrombin Time 12.4 sec (9.27-12.13)
[2017-11-26] MEDS ORDERED: SODIUM CHLORIDE 0.9% 2,200 ML IV ONE (22:15)
[2017-11-26 22:19] LABS: Alanine Aminotransferase 9 U/L (13-56); Albumin 2.4 g/dL (3.4-5.0); Alkaline Phosphatase 61 U/L (45-117); Anion Gap 10 (5-15); Aspartate Aminotransferase 10 U/L (15-37); BUN/Creatinine Ratio 16.1; Bilirubin, Total 0.8 mg/dL (0.2-1.0); Blood Urea Nitrogen 10 mg/dL (7-18); Calcium 7.3 mg/dL (8.5-10.1); Carbon Dioxide 25 mmol/L (21-32); Chloride 105 mmol/L (98-107); GFR African American 121 mL/min; GFR Non-African American 100 mL/min; Glucose 177 mg/dL (74-106); Magnesium 1.7 mg/dL (1.6-2.6); Sodium 140 mmol/L (136-145)
[2017-11-26 22:24] LABS: Potassium 2.5 mmol/L (3.5-5.1)
[2017-11-26] MEDS ORDERED: POTASSIUM CHL 10% (20 MEQ/15ML) 15ml ORAL SOLN PO ONE (23:00)
[2017-11-26] MEDS: POTASSIUM CHL 20MEQ/100ML 100 ML IV SCH (23:20)
[2017-11-26] MEDS ORDERED: ONDANSETRON HCL 4 MG/2 ML VIAL ONE (23:31)
[2017-11-27] MEDS ORDERED: ONDANSETRON HCL 4 MG/2 ML VIAL IV ONE (00:30)
[2017-11-27 01:16] LABS: Urine Bacteria MOD /hpf (None Seen); Urine Blood 1+ /uL (Negative); Urine Mucus FEW (None Seen); Urine Specific Gravity 1.012 (1.001-1.035); Urine WBC 382 /hpf (0 - 5); Urine WBC Clumps PRESENT /hpf (None Seen)
[2017-11-27] MEDS: POTASSIUM CHL 20MEQ/100ML 100 ML IV SCH (01:58)
[2017-11-27] MEDS ORDERED: ACETAMINOPHEN 325 MG TAB PO PRN (03:15)
[2017-11-27] MEDS ORDERED: NITROGLYCERIN 0.4 MG SL TAB SL PRN (03:15)
[2017-11-27] MEDS ORDERED: TEMAZEPAM 15 MG CAP PO PRN (03:15)
[2017-11-27] MEDS ORDERED: SODIUM CHLORIDE 0.9% 500 ML IV ONE (03:15)
[2017-11-27] MEDS ORDERED: ALBUMIN 5% 250 ML IV ONE (03:15)
[2017-11-27] MEDS ORDERED: MORPHINE SULF INJ 10 MG/ML 10ML MDV IV PRN (03:15)
[2017-11-27] MEDS: SODIUM CHLORIDE 0.9% 1,000 ML IV SCH ×2 (03:38→13:25)
[2017-11-27] MEDS: HYDROcodone-ACET 5/325MG TAB PO PRN ×3 (04:00→22:05)
[2017-11-27] MEDS: metroNIDAZOLE 500MG/100ML 100 ML IV SCH ×3 (06:00→22:04)
[2017-11-27] MEDS: GABAPENTIN 300 MG CAP PO SCH ×3 (06:00→22:04)
[2017-11-27] MEDS: DICYCLOMINE HCL 10 MG CAP PO SCH ×4 (06:00→22:04)
[2017-11-27] MEDS ORDERED: LEVOFLOXACIN 750MG 150 ML IV SCH (10:00)
[2017-11-27] MEDS: ENOXAPARIN SOD 40 MG/0.4 ML SYRINGE SC SCH (10:15)
[2017-11-27] MEDS: FOLIC ACID 1 MG TAB PO SCH (10:15)
[2017-11-27] MEDS: PREGABALIN 25 MG CAP PO SCH (10:15)
[2017-11-27] MEDS: FLUoxetine HCL 10 MG CAP PO SCH (10:15)
[2017-11-27] MEDS: FAMOTIDINE 20 MG TAB PO SCH ×2 (10:15→22:05)
[2017-11-27 10:58] LABS: Basophils # (auto) 0.1 uL; Basophils % (auto) 0.4 % (0.0-2.0); Eosinophils # (auto) 0 uL; Eosinophils % (auto) 0.1 % (0.0-7.0); Hematocrit 30.5 % (36.0-46.0); Hemoglobin 9.9 g/dL (12.2-16.2); Lymphocytes # (auto) 0.7 uL; Mean Corpuscular Hemoglobin 31.5 pg (28.0-32.0); Mean Corpuscular Hgb Conc. 32.5 g/dL (32.0-36.0); Mean Corpuscular Volume 96.8 fL (80.0-100.0); Monocytes # (auto) 1.3 uL; Neutrophils # (auto) 10.4 uL; Neutrophils % (auto) 83.5 % (37.0-80.0); Platelet Count (auto) 196 10^3/uL (140-450); Red Blood Cells 3.16 10^6/uL (4.0-5.20); Red Cell Distribution Width 16.5 % (11.8-14.3); White Blood Cell 12.5 10^3/uL (4.4-10.8)
[2017-11-27 11:08] LABS: Albumin 2.3 g/dL (3.4-5.0); BUN/Creatinine Ratio 16.3; Bilirubin, Total 0.6 mg/dL (0.2-1.0); Calcium 6.6 mg/dL (8.5-10.1); Potassium 4.8 mmol/L (3.5-5.1); Total Protein 5.3 g/dL (6.4-8.2)
[2017-11-27] MEDS: ONDANSETRON HCL 4 MG/2 ML VIAL IV PRN ×2 (13:48→18:30)
[2017-11-27 17:00] VITALS: BP 117/72
[2017-11-27 17:59] VITALS: BP 117/72
[2017-11-27] MEDS ORDERED: cefTRIAXone 1GM/10ml IVPUSH 10 ML IV ONE (19:00)
[2017-11-27 22:00] VITALS: BP 141/91
[2017-11-28] MEDS ORDERED: KETOROLAC TROMETH 30 MG/ML 1ML VIAL IV PRN (00:15)
[2017-11-28] MEDS: SODIUM CHLORIDE 0.9% 1,000 ML IV SCH ×2 (01:40→13:43)
[2017-11-28 05:00] VITALS: BP 140/89
[2017-11-28 05:14] LABS: Basophils # (auto) 0 uL; Basophils % (auto) 0.3 % (0.0-2.0); Eosinophils # (auto) 0 uL; Eosinophils % (auto) 0.3 % (0.0-7.0); Hematocrit 30.4 % (36.0-46.0); Hemoglobin 10.2 g/dL (12.2-16.2); Lymphocytes # (auto) 0.8 uL; Mean Corpuscular Hemoglobin 31.2 pg (28.0-32.0); Mean Corpuscular Hgb Conc. 33.5 g/dL (32.0-36.0); Mean Corpuscular Volume 93.1 fL (80.0-100.0); Monocytes % (auto) 8.4 % (0.0-12.0); Neutrophils # (auto) 9.6 uL; Platelet Count (auto) 197 10^3/uL (140-450); Red Blood Cells 3.27 10^6/uL (4.0-5.20); Red Cell Distribution Width 16.1 % (11.8-14.3); White Blood Cell 11.5 10^3/uL (4.4-10.8)
[2017-11-28 05:37] LABS: Albumin 2.1 g/dL (3.4-5.0); BUN/Creatinine Ratio 18.4; Bilirubin, Total 0.5 mg/dL (0.2-1.0); Calcium 6.9 mg/dL (8.5-10.1); Potassium 3.5 mmol/L (3.5-5.1); Total Protein 5.4 g/dL (6.4-8.2)
[2017-11-28] MEDS: metroNIDAZOLE 500MG/100ML 100 ML IV SCH ×3 (07:21→21:38)
[2017-11-28] MEDS: DICYCLOMINE HCL 10 MG CAP PO SCH ×4 (07:22→21:39)
[2017-11-28] MEDS: GABAPENTIN 300 MG CAP PO SCH ×3 (07:22→21:39)
[2017-11-28 09:00] VITALS: BP 145/87
[2017-11-28] MEDS ORDERED: cefTRIAXone 1GM/10ml IVPUSH 10 ML IV SCH (09:00)
[2017-11-28] MEDS: PREGABALIN 25 MG CAP PO SCH (09:35)
[2017-11-28] MEDS: FLUoxetine HCL 10 MG CAP PO SCH (09:36)
[2017-11-28] MEDS: ENOXAPARIN SOD 40 MG/0.4 ML SYRINGE SC SCH (09:36)
[2017-11-28] MEDS: FOLIC ACID 1 MG TAB PO SCH (09:36)
[2017-11-28] MEDS: FAMOTIDINE 20 MG TAB PO SCH ×2 (09:36→21:39)
[2017-11-28] MEDS: HYDROcodone-ACET 5/325MG TAB PO PRN ×3 (09:44→20:35)
[2017-11-28] MEDS: CEFEPIME HYDROCHLORIDE 2 GM in SODIUM CHL 0.9% 50 ML IV SCH ×2 (10:01→21:38)
[2017-11-28 14:00] VITALS: BP 121/59
[2017-11-28 17:00] VITALS: BP 123/79
[2017-11-28] MEDS: ONDANSETRON HCL 4 MG/2 ML VIAL IV PRN (18:52)
[2017-11-28 21:09] LABS: Urine Bacteria NONE SEEN /hpf (None Seen); Urine Blood 1+ /uL (Negative); Urine Mucus FEW (None Seen); Urine WBC 1051 /hpf (0 - 5); Urine WBC Clumps PRESENT /hpf (None Seen)
[2017-11-28 22:00] VITALS: BP 120/73
[2017-11-29] MEDS: SODIUM CHLORIDE 0.9% 1,000 ML IV SCH ×3 (00:06→21:02)
[2017-11-29] MEDS: ONDANSETRON HCL 4 MG/2 ML VIAL IV PRN ×2 (00:38→04:46)
[2017-11-29] MEDS: HYDROcodone-ACET 5/325MG TAB PO PRN ×5 (00:38→21:53)
[2017-11-29 04:48] VITALS: BP 122/77
[2017-11-29] MEDS: GABAPENTIN 300 MG CAP PO SCH ×3 (05:59→21:01)
[2017-11-29] MEDS: DICYCLOMINE HCL 10 MG CAP PO SCH ×4 (05:59→21:01)
[2017-11-29] MEDS: metroNIDAZOLE 500MG/100ML 100 ML IV SCH ×3 (05:59→21:00)
[2017-11-29 06:40] LABS: Basophils # (auto) 0 uL; Basophils % (auto) 0.3 % (0.0-2.0); Eosinophils # (auto) 0.2 uL; Hematocrit 29.4 % (36.0-46.0); Hemoglobin 10.2 g/dL (12.2-16.2); Lymphocytes # (auto) 0.9 uL; Lymphocytes % (auto) 9.9 % (10.0-50.0); Mean Corpuscular Hgb Conc. 34.6 g/dL (32.0-36.0); Mean Corpuscular Volume 92.6 fL (80.0-100.0); Monocytes # (auto) 0.9 uL; Monocytes % (auto) 9.9 % (0.0-12.0); Neutrophils # (auto) 7.2 uL; Neutrophils % (auto) 77.9 % (37.0-80.0); Platelet Count (auto) 214 10^3/uL (140-450); Red Blood Cells 3.17 10^6/uL (4.0-5.20); Red Cell Distribution Width 15.7 % (11.8-14.3); White Blood Cell 9.3 10^3/uL (4.4-10.8)
[2017-11-29 07:01] LABS: BUN/Creatinine Ratio 25.6; Calcium 6.9 mg/dL (8.5-10.1)
[2017-11-29 07:19] VITALS: BP 117/73
[2017-11-29] MEDS: ENOXAPARIN SOD 40 MG/0.4 ML SYRINGE SC SCH (09:24)
[2017-11-29] MEDS: CEFEPIME HYDROCHLORIDE 2 GM in SODIUM CHL 0.9% 50 ML IV SCH ×2 (09:24→21:00)
[2017-11-29] MEDS: PREGABALIN 25 MG CAP PO SCH (09:25)
[2017-11-29] MEDS: FLUoxetine HCL 10 MG CAP PO SCH (09:25)
[2017-11-29] MEDS: FAMOTIDINE 20 MG TAB PO SCH ×2 (09:25→21:01)
[2017-11-29] MEDS: FOLIC ACID 1 MG TAB PO SCH (09:25)
[2017-11-29] MEDS: POTASSIUM CHL 20 Meq TABLET PO SCH ×2 (10:54→21:01)
[2017-11-29 12:24] VITALS: BP 98/62
[2017-11-29 16:55] VITALS: BP 100/57
[2017-11-29 22:08] VITALS: BP 113/62
[2017-11-30] MEDS: DICYCLOMINE HCL 10 MG CAP PO SCH ×2 (05:34→13:58)
[2017-11-30] MEDS: HYDROcodone-ACET 5/325MG TAB PO PRN ×3 (05:34→15:51)
[2017-11-30] MEDS: metroNIDAZOLE 500MG/100ML 100 ML IV SCH ×2 (05:34→13:57)
[2017-11-30] MEDS: GABAPENTIN 300 MG CAP PO SCH ×2 (05:35→13:57)
[2017-11-30 05:59] VITALS: BP 127/80
[2017-11-30 06:47] LABS: Basophils # (auto) 0 uL; Basophils % (auto) 0.4 % (0.0-2.0); Eosinophils # (auto) 0.2 uL; Eosinophils % (auto) 1.6 % (0.0-7.0); Hematocrit 34.9 % (36.0-46.0); Hemoglobin 11.4 g/dL (12.2-16.2); Lymphocytes # (auto) 1.3 uL; Mean Corpuscular Hemoglobin 31.6 pg (28.0-32.0); Mean Corpuscular Hgb Conc. 32.6 g/dL (32.0-36.0); Mean Corpuscular Volume 96.9 fL (80.0-100.0); Neutrophils # (auto) 7.6 uL; Nucleated Red Blood Cells % 0.1 %; Platelet Count (auto) 227 10^3/uL (140-450); Red Cell Distribution Width 17.5 % (11.8-14.3); White Blood Cell 10.1 10^3/uL (4.4-10.8)
[2017-11-30 07:00] LABS: BUN/Creatinine Ratio 23.5; Calcium 7.4 mg/dL (8.5-10.1); Potassium 3.9 mmol/L (3.5-5.1)
[2017-11-30 07:21] VITALS: BP 122/70
[2017-11-30 08:00] VITALS: BP 122/70
[2017-11-30] MEDS: ONDANSETRON HCL 4 MG/2 ML VIAL IV PRN (10:07)
[2017-11-30] MEDS: FAMOTIDINE 20 MG TAB PO SCH (10:08)
[2017-11-30] MEDS: FOLIC ACID 1 MG TAB PO SCH (10:08)
[2017-11-30] MEDS: ENOXAPARIN SOD 40 MG/0.4 ML SYRINGE SC SCH (10:09)
[2017-11-30] MEDS: PREGABALIN 25 MG CAP PO SCH (10:09)
[2017-11-30] MEDS: FLUoxetine HCL 10 MG CAP PO SCH (10:09)
[2017-11-30] MEDS: CEFEPIME HYDROCHLORIDE 2 GM in SODIUM CHL 0.9% 50 ML IV SCH (10:30)
[2017-11-30 12:00] VITALS: BP 131/84
[2017-11-30 15:24] VITALS: BP 131/84
== END 2017-11-30 17:15 | disposition home or self-care (01) | DRG 872 ==
LOC: EDBD 20:08 → ER 20:08 → TELE 20:09 → TELE-WESTW 11-27 15:21
PROVIDERS: ADMIT Nurse Practitioner; ATTEND Internal Medicine
DX: A41.52 Sepsis due to Pseudomonas (principal); E44.0 Moderate protein-calorie malnutrition; I95.9 Hypotension, unspecified; N13.30 Unspecified hydronephrosis; J44.9 Chronic obstructive pulmonary disease, unspecified; F03.90 Unspecified dementia, unspecified severity, without behavioral disturbance, psychotic disturbance, mood disturbance, and anxiety; N13.39 Other hydronephrosis; N39.0 Urinary tract infection, site not specified; F32.9 Major depressive disorder, single episode, unspecified; F41.9 Anxiety disorder, unspecified; N18.9 Chronic kidney disease, unspecified; R65.20 Severe sepsis without septic shock; E87.6 Hypokalemia; K21.9 Gastro-esophageal reflux disease without esophagitis; N81.10 Cystocele, unspecified; Z87.11 Personal history of peptic ulcer disease; Z68.27 Body mass index [BMI] 27.0-27.9, adult; Z90.49 Acquired absence of other specified parts of digestive tract
CPT/HCPCS: 36415; 71045; 74176; 80048; 80053; 81001; 83605; 83735; 83880; 84484; 85025; 85610; 85730; 87040; 87077; 87086; 87088; 87186; 87493; 93005; 94761; 96365; 96366; 96367; 96375; J1885; J1956; J2270; J2405; J3480; J3490

== ENCOUNTER → 2017-12-14 | Day surgery (SDC) | payer MEDICARE, MEDICAID ==
[2017-12-10 10:07] LABS: Basophils # (auto) 0.1 uL; Basophils % (auto) 0.7 % (0.0-2.0); Eosinophils # (auto) 0.2 uL; Eosinophils % (auto) 2.3 % (0.0-7.0); Hematocrit 35.6 % (36.0-46.0); Hemoglobin 11.8 g/dL (12.2-16.2); Lymphocytes % (auto) 20.1 % (10.0-50.0); Mean Corpuscular Hemoglobin 30.9 pg (28.0-32.0); Mean Corpuscular Volume 93.5 fL (80.0-100.0); Monocytes # (auto) 0.9 uL; Monocytes % (auto) 8.7 % (0.0-12.0); Neutrophils # (auto) 6.9 uL; Neutrophils % (auto) 68.2 % (37.0-80.0); Nucleated Red Blood Cells % 0.1 %; Platelet Count (auto) 358 10^3/uL (140-450); Red Blood Cells 3.81 10^6/uL (4.0-5.20); Red Cell Distribution Width 16.9 % (11.8-14.3); Urine Bacteria NONE SEEN /hpf (None Seen); Urine Blood Negative /uL (Negative); Urine Mucus FEW (None Seen); Urine Specific Gravity 1.009 (1.001-1.035); Urine WBC 4 /hpf (0 - 5); White Blood Cell 10.1 10^3/uL (4.4-10.8)
[2017-12-10 10:27] LABS: Albumin 3.1 g/dL (3.4-5.0); BUN/Creatinine Ratio 16.7; Bilirubin, Total 0.3 mg/dL (0.2-1.0); Calcium 8.7 mg/dL (8.5-10.1); Potassium 3.4 mmol/L (3.5-5.1); Total Protein 7.3 g/dL (6.4-8.2)
[2017-12-10 10:37] LABS: INR 0.93 (0.9-1.15); Partial Thromboplastin Time 23.4 sec (23.78-33.04)
[~2017-12-14] VITALS: Ht 157.5 cm; Wt 56.2 kg
[~2017-12-14] MED LIST changes: +BUPIVACAINE 0.25% INJ 50ML VIAL ONE; +BUPIVACAINE W/ EPINEPH 0.25% INJ 50ML MDV ONE; +CONJ ESTROGENS 0.625MG/GM VAG CRM 30GM PV ONE; -DICY20TA66 PO; -FLUT1SPR5; +HYDROCORTISONE SOD SUCC 100 MG/2ML INJ VIAL ONE; -LORA2TAB89 PO; +ONDANSETRON HCL 4 MG/2 ML VIAL IV ONE; +PROPOFOL 10 MG/ML 20 ML IV ONE; -SUCR1TAB38 OR; -TERI600S SUBCUT; +ceFAZolin 1GM VL ONE; +ceFAZolin 1GM/50ML 50 ML IV ONE; +ePHEDrine SULFATE 50 MG/ML AMP IV PRN; +fentaNYL CITRATE 100 MCG/2 ML VL ONE; +hydrALAZINE HCL 20 MG/ML VL IV PRN
[2017-12-14] MEDS: fentaNYL CITRATE 100 MCG/2 ML VL IV PRN ×4 (13:20→14:07)
[2017-12-14 14:07] VITALS: BP 126/81
== END | disposition home or self-care (01) ==
LOC: SUR 08:19
PROVIDERS: ATTEND Urology
DX: N81.10 Cystocele, unspecified (principal); N39.3 Stress incontinence (female) (male); M06.9 Rheumatoid arthritis, unspecified; Z79.1 Long term (current) use of non-steroidal anti-inflammatories (NSAID); Z79.899 Other long term (current) drug therapy; G60.9 Hereditary and idiopathic neuropathy, unspecified; F32.9 Major depressive disorder, single episode, unspecified; J45.909 Unspecified asthma, uncomplicated; M81.0 Age-related osteoporosis without current pathological fracture; K21.9 Gastro-esophageal reflux disease without esophagitis; Z90.49 Acquired absence of other specified parts of digestive tract
CPT/HCPCS: 36415; 57106; 57240; 57267; 57288; 80053; 81001; 85025; 85610; 85730; 88302; C1763; C1781; J0690; J1720; J2704; J3010; J3490

== ENCOUNTER → 2018-04-20 | Outpatient (CLI) | payer MEDICARE, MEDICAID ==
[~2018-04-20] MED LIST changes: +ALEN1TAB32 PO; -ALEN70TA55 PO; -BUPIVACAINE 0.25% INJ 50ML VIAL ONE; -BUPIVACAINE W/ EPINEPH 0.25% INJ 50ML MDV ONE; -CONJ ESTROGENS 0.625MG/GM VAG CRM 30GM PV ONE; -HYDROCORTISONE SOD SUCC 100 MG/2ML INJ VIAL ONE; -ONDANSETRON HCL 4 MG/2 ML VIAL IV ONE; -PROPOFOL 10 MG/ML 20 ML IV ONE; -ceFAZolin 1GM VL ONE; -ceFAZolin 1GM/50ML 50 ML IV ONE; -ePHEDrine SULFATE 50 MG/ML AMP IV PRN; -fentaNYL CITRATE 100 MCG/2 ML VL ONE; -hydrALAZINE HCL 20 MG/ML VL IV PRN
[2018-04-20 12:53] LABS: Basophils # (auto) 0.1 uL; Basophils % (auto) 0.7 % (0.0-2.0); Eosinophils # (auto) 0.1 uL; Hematocrit 44.3 % (36.0-46.0); Hemoglobin 14.4 g/dL (12.2-16.2); Lymphocytes # (auto) 2.3 uL; Lymphocytes % (auto) 26.2 % (10.0-50.0); Mean Corpuscular Hemoglobin 28.8 pg (28.0-32.0); Mean Corpuscular Hgb Conc. 32.4 g/dL (32.0-36.0); Mean Corpuscular Volume 88.8 fL (80.0-100.0); Monocytes % (auto) 11.6 % (0.0-12.0); Neutrophils # (auto) 5.4 uL; Neutrophils % (auto) 60.5 % (37.0-80.0); Nucleated Red Blood Cells % 0.1 %; Platelet Count (auto) 249 10^3/uL (140-450); Red Blood Cells 4.99 10^6/uL (4.0-5.20); Red Cell Distribution Width 16.9 % (11.8-14.3); White Blood Cell 8.9 10^3/uL (4.4-10.8)
[2018-04-20 13:12] LABS: Albumin 3.8 g/dL (3.4-5.0); Calcium 8.9 mg/dL (8.5-10.1); Potassium 4.2 mmol/L (3.5-5.1)
[2018-04-20 13:17] LABS: BUN/Creatinine Ratio 29.3; Bilirubin, Total 0.4 mg/dL (0.2-1.0); Total Protein 8.1 g/dL (6.4-8.2)
[2018-04-20 13:21] LABS: Free T4 (Free Thyroxine) 1.2 ng/dL (0.89-1.76)
== END | disposition home or self-care (01) ==
LOC: LAB 12:03
PROVIDERS: ATTEND Internal Medicine
DX: D64.9 Anemia, unspecified (principal); R53.83 Other fatigue; R10.9 Unspecified abdominal pain
CPT/HCPCS: 36415; 80053; 82607; 83540; 84439; 84443; 85025; 87086

== ENCOUNTER → 2021-09-11 | Outpatient (CLI) | payer MEDICARE, MEDICAID ==
[~2021-09-11] MED LIST changes: -ALEN1TAB32 PO; +ALEN70TA74 PO
[2021-09-11 09:12] LABS: Hematocrit 37.3 % (36.0-46.0); Hemoglobin 12.8 g/dL (12.2-16.2); Mean Corpuscular Hgb Conc. 34.3 g/dL (32.0-36.0); Mean Corpuscular Volume 96.2 fL (80.0-100.0); Red Blood Cells 3.87 10^6/uL (4.0-5.20); Red Cell Distribution Width 14.6 % (11.8-14.3); White Blood Cell 2.9 10^3/uL (4.4-10.8)
[2021-09-11 09:56] LABS: Band Neutrophils % (manual) 0; Basophils % (manual) 0 (0.0-2.0); Blast Cells 0; Metamyelocytes % 0; Myelocytes % 0; Promyelocytes % 0; Reactive Lymphocytes 0
[2021-09-11 09:58] LABS: Albumin 3.5 g/dL (3.4-5.0); Calcium 8.8 mg/dL (8.5-10.1); Potassium 3.9 mmol/L (3.5-5.1)
[2021-09-11 10:03] LABS: BUN/Creatinine Ratio 12.9; Bilirubin, Total 0.8 mg/dL (0.2-1.0); Total Protein 6.6 g/dL (6.4-8.2)
[2021-09-11 11:40] LABS: Eosinophils % (manual) 1 (0-7); Lymphocytes % (manual) 34 (10.0-50.0); Monocytes % (manual) 13 (0-12)
== END | disposition home or self-care (01) ==
LOC: LAB 08:16
PROVIDERS: ATTEND Student in an Organized Health Care Education/Training Program
DX: R73.9 Hyperglycemia, unspecified (principal); R03.0 Elevated blood-pressure reading, without diagnosis of hypertension; E78.5 Hyperlipidemia, unspecified
CPT/HCPCS: 36415; 80053; 80061; 83036; 84443; 85007; 85027

== ENCOUNTER → 2021-10-22 | Outpatient (CLI) | payer OTHER, MEDICAID, MEDICARE ==
[2021-10-22 09:10] LABS: Basophils # (auto) 0 10 ^3/uL (0-0.2); Basophils % (auto) 0.8 % (0.0-2.0); Eosinophils # (auto) 0.1 10 ^3/uL (0-0.8); Eosinophils % (auto) 2.8 % (0.0-7.0); Hematocrit 37.6 % (36.0-46.0); Lymphocytes # (auto) 0.8 10 ^3/uL (0.4-5.4); Lymphocytes % (auto) 21.8 % (10.0-50.0); Mean Corpuscular Hemoglobin 33.2 pg (28.0-32.0); Mean Corpuscular Hgb Conc. 34.5 g/dL (32.0-36.0); Mean Corpuscular Volume 96.2 fL (80.0-100.0); Monocytes # (auto) 0.6 10 ^3/uL (0-1.3); Monocytes % (auto) 16.1 % (0.0-12.0); Neutrophils # (auto) 2.2 10 ^3/uL (1.6-8.6); Neutrophils % (auto) 58.5 % (37.0-80.0); Red Blood Cells 3.91 10^6/uL (4.0-5.20); Red Cell Distribution Width 14.6 % (11.8-14.3); White Blood Cell 3.7 10^3/uL (4.4-10.8)
[2021-10-22 09:29] LABS: Calcium 8.6 mg/dL (8.5-10.1); Potassium 3.8 mmol/L (3.5-5.1)
[2021-10-22 09:35] LABS: Albumin 3.6 g/dL (3.4-5.0); BUN/Creatinine Ratio 11.8; Bilirubin, Total 0.6 mg/dL (0.2-1.0); CRP High Sensitivity 0.28 mg/dL (< 0.3); Total Protein 7.1 g/dL (6.4-8.2)
== END | disposition home or self-care (01) ==
LOC: LAB 08:27
PROVIDERS: ATTEND Internal Medicine Rheumatology
DX: M05.79 Rheumatoid arthritis with rheumatoid factor of multiple sites without organ or systems involvement (principal); N94.5 Secondary dysmenorrhea; Z11.1 Encounter for screening for respiratory tuberculosis
CPT/HCPCS: 36415; 80053; 85025; 85652; 86141; 86200; 86431; 86704; 87340